=== PATIENT | female | born 1990 | race Caucasian/White ===

== ENCOUNTER 2016-10-18 09:59 | Emergency (ER) | payer SELFPAY ==
[~2016-10-18] VITALS: Ht 162.6 cm; Wt 60.0 kg
[~2016-10-18 09:59] MED LIST: BACT2OIN TOP; BACT800T5 PO; CEPH500C3 PO
[2016-10-18 10:00] VITALS: BP 154/75; PULSE 87; RESP 22; TEMP 97.5; O2SAT 98
--- NOTE | 2016-10-18 11:27 | PD ---
HPI Chief Complaint: Flank/Kidney Pain Stated Complaint: RIGHT FLANK PAIN Time Seen by Provider: 11:26 Travel History International Travel<30 days: No Contact w/Intl Traveler<30days: No Known affected area: No History of Present Illness HPI 26-year-old female with history of IV drug use, last used this week, presents to emergency department for evaluation of right sided flank pain and acute onset yesterday. Patient states the pain is sharp, stabbing, constant. Rates it a 10 out of 10. Denies any urinary symptoms. Patient has history of 2, 2. No history of kidney stones. Subjective fever and chills. She has not taken anything for this or her pain. Nausea without vomiting. No other symptoms to report. History Social History Alcohol Use: No Tobacco Use: No Allergies-Medications (Allergen,Severity, Reaction): Coded Allergies: No Known Allergies (Verified , 07/16/16) Reported Meds & Prescriptions Reported Meds & Active Scripts Active Ibuprofen 600 Mg Tab 600 Mg PO Q8HR PRN Flomax (Tamsulosin HCl) 0.4 Mg Cap 0.4 Mg PO BID 5 Days Cipro (Ciprofloxacin HCl) 500 Mg Tab 500 Mg PO BID 10 Days Percocet (Oxycodone-Acetaminophen) 10-325 mg Tab 1 Tab PO Q6H PRN Mupirocin 2% Oint (22 gm) (Mupirocin) 2 % Oin 1 Applic TOP BID 14 Days Keflex (Cephalexin Monohydrate) 500 Mg Cap 500 Mg PO BID Bactrim Ds1 Tab 1 Tab Tab 1 Tab PO BID 10 Days Review of Systems Except as stated in HPI: all other systems reviewed are Neg Physical Exam Narrative GENERAL: Well-nourished, well-developed female patient, lying in bed, in no acute distress SKIN: Warm and dry. HEAD: Normocephalic. Atraumatic EYES: No scleral icterus. No injection or drainage. NECK: Supple, trachea midline. No JVD or lymphadenopathy. CARDIOVASCULAR: Regular rate and rhythm without murmurs, gallops, or rubs. RESPIRATORY: Breath sounds equal bilaterally. No accessory muscle use. GASTROINTESTINAL: Abdomen soft, non-tender, nondistended. MUSCULOSKELETAL: No cyanosis, or edema. BACK: Nontender without obvious deformity. Right CVA tenderness. Data Data Last Documented VS Vital Signs Date Time Temp Pulse Resp B/P Pulse Ox O2 Delivery O2 Flow Rate FiO2 10/18/16 10:00 97.5 87 22 154/75 98 Orders Urinalysis - C+S If Indicated (10/18/16 10:02) Ed Urine Pregnancytest Poc (10/18/16 10:02) Complete Blood Count With Diff (10/18/16 10:02) Lipase (10/18/16 10:02) Basic Metabolic Panel (Bmp) (10/18/16 11:24) Ketorolac Inj (Toradol Inj) (10/18/16 11:30) Ct Abd/Pel W/O Iv Contrast (10/18/16 ) Urine Culture (10/18/16 11:30) Labs Laboratory Tests Test 10/18/16 11:30 White Blood Count 6.9 TH/MM3 Red Blood Count 4.91 MIL/MM3 Hemoglobin 14.1 GM/DL Hematocrit 42.0 % Mean Corpuscular Volume 85.6 FL Mean Corpuscular Hemoglobin 28.8 PG Mean Corpuscular Hemoglobin 33.6 % Concent Red Cell Distribution Width 12.8 % Platelet Count 233 TH/MM3 Mean Platelet Volume 8.0 FL Neutrophils (%) (Auto) 94.7 % Lymphocytes (%) (Auto) 4.2 % Monocytes (%) (Auto) 0.6 % Eosinophils (%) (Auto) 0.3 % Basophils (%) (Auto) 0.2 % Neutrophils # (Auto) 6.5 TH/MM3 Lymphocytes # (Auto) 0.3 TH/MM3 Monocytes # (Auto) 0.0 TH/MM3 Eosinophils # (Auto) 0.0 TH/MM3 Basophils # (Auto) 0.0 TH/MM3 CBC Comment DIFF FINAL Differential Comment Urine Color DARK-BROWN Urine Turbidity HAZY Urine pH 6.0 Urine Specific [place] 1.016 Urine Protein TRACE mg/dL Urine Glucose (UA) NEG mg/dL Urine Ketones NEG mg/dL Urine Occult Blood LARGE Urine Nitrite POS Urine Bilirubin NEG Urine Urobilinogen LESS THAN 2.0 MG/DL Urine Leukocyte Esterase LARGE Urine RBC 52 /hpf Urine WBC 100 /hpf Urine WBC Clumps FEW Urine Squamous Epithelial 15 /hpf Cells Urine Bacteria MOD /hpf Urine Mucus FEW /lpf Microscopic Urinalysis Comment CULTURE INDICATED Sodium Level 140 MEQ/L Potassium Level 3.8 MEQ/L Chloride Level 106 MEQ/L Carbon Dioxide Level 27.8 MEQ/L Anion Gap 6 MEQ/L Blood Urea Nitrogen 6 MG/DL Creatinine 0.98 MG/DL Estimat Glomerular Filtration 69 ML/MIN Rate Random Glucose 120 MG/DL Calcium Level 9.1 MG/DL Lipase 77 U/L [facility] Medical Decision Making Medical Screen Exam Complete: Yes Emergency Medical Condition: Yes Medical Record Reviewed: Yes Differential Diagnosis Renal calculi versus pyelonephritis versus cystitis versus PID versus abscess Narrative Course 26 year-old female presents as a department for evaluation of right flank pain. Patient appears overall well. She does appear in pain. She has right sided CVA tenderness. Workup was initiated in triage. She was given IM Toradol and this seems to alleviate much of her pain. Laboratory Tests Test 10/18/16 11:30 White Blood Count 6.9 TH/MM3 Red Blood Count 4.91 MIL/MM3 Hemoglobin 14.1 GM/DL Hematocrit 42.0 % Mean Corpuscular Volume 85.6 FL Mean Corpuscular Hemoglobin 28.8 PG Mean Corpuscular Hemoglobin 33.6 % Concent Red Cell Distribution Width 12.8 % Platelet Count 233 TH/MM3 Mean Platelet Volume 8.0 FL Neutrophils (%) (Auto) 94.7 % Lymphocytes (%) (Auto) 4.2 % Monocytes (%) (Auto) 0.6 % Eosinophils (%) (Auto) 0.3 % Basophils (%) (Auto) 0.2 % Neutrophils # (Auto) 6.5 TH/MM3 Lymphocytes # (Auto) 0.3 TH/MM3 Monocytes # (Auto) 0.0 TH/MM3 Eosinophils # (Auto) 0.0 TH/MM3 Basophils # (Auto) 0.0 TH/MM3 CBC Comment DIFF FINAL Differential Comment Urine Color DARK-BROWN Urine Turbidity HAZY Urine pH 6.0 Urine Specific [place] 1.016 Urine Protein TRACE mg/dL Urine Glucose (UA) NEG mg/dL Urine Ketones NEG mg/dL Urine Occult Blood LARGE Urine Nitrite POS Urine Bilirubin NEG Urine Urobilinogen LESS THAN 2.0 MG/DL Urine Leukocyte Esterase LARGE Urine RBC 52 /hpf Urine WBC 100 /hpf Urine WBC Clumps FEW Urine Squamous Epithelial 15 /hpf Cells Urine Bacteria MOD /hpf Urine Mucus FEW /lpf Microscopic Urinalysis Comment CULTURE INDICATED Sodium Level 140 MEQ/L Potassium Level 3.8 MEQ/L Chloride Level 106 MEQ/L Carbon Dioxide Level 27.8 MEQ/L Anion Gap 6 MEQ/L Blood Urea Nitrogen 6 MG/DL Creatinine 0.98 MG/DL Estimat Glomerular Filtration 69 ML/MIN Rate Random Glucose 120 MG/DL Calcium Level 9.1 MG/DL Lipase 77 U/L Last Impressions Abdomen/Pelvis CT 10/18/16 0000 Signed Impressions: Service Date/Time: October 12:00 - CONCLUSION: 1. Severe obstructive uropathy on the right secondary to a distal ureter/ UVJ calculus measuring 4 mm. 2. Otherwise unremarkable study. Jose Kirkland MD I discussed the lab results and the CT results with my attending physician Dr. Osullivan. He recommends patient be put on by mouth antibiotics due to her urine results however patient does not appear septic based on lab work and vital signs. Patient at this time is realizing much improvement in her pain. Dr. Osullivan also recommends Flomax with additional pain control. I discussed this with the patient as well as the findings of the exam and concern of worsening infection. She agrees to return immediately with any acute worsening symptoms. Diagnosis Primary Impression: Obstructive uropathy Additional Impression: Renal calculus, right Referrals: Primary Care Physician Urologist Patient Instructions: General Instructions, Kidney Stones (ED) Additional Instructions: Maintain adequate oral hydration Follow up with urologist Return with fever, any worsening persistent pain, or acute change in symptoms Med/Other Pt SpecificInfo: Prescription(s) given Scripts Ibuprofen 600 Mg Sem950 Mg PO Q8HR PRN (PAIN) #30 TAB Ref 0 Prov:Victoria Young 10/18/16 Tamsulosin (Flomax)0.4 Mg Cap0.4 Mg PO BID 5 Days Ref 0 Prov:Victoria Young 10/18/16 Ciprofloxacin (Cipro)500 Mg Gyn442 Mg PO BID 10 Days Ref 0 Prov:Victoria Young 10/18/16 Oxycodone-Acetaminophen (Percocet)10-325 mg Tab1 Tab PO Q6H PRN (PAIN) #15 TAB Ref 0 Prov:Kamlesh Osullivan MD 10/18/16 Disposition: 01 DISCHARGE HOME Condition: Stable Victoria Young Oct 18, 2016 11:27
[2016-10-18] MEDS ORDERED: KETOROLAC TROMETHAMINE 60 MG/2 ML (IM) VIAL IM ONE (11:30)
[2016-10-18 12:03] LABS: AUTOMATED NEUTROPHIL # 6.5 TH/MM3 (1.8-7.7); BASOPHIL % 0.2 % (0.0-2.0); EOSINOPHIL % 0.3 % (0.0-4.0); HEMO FLAGS DIFF FINAL; LYMPH % 4.2 % (9.0-44.0); LYMPHOCYTE # 0.3 TH/MM3 (1.0-4.8); MEAN CELL VOLUME 85.6 FL (80.0-100.0); MEAN CORPUSCULAR HEMOGLOBIN 28.8 PG (27.0-34.0); MEAN CORPUSCULAR HGB CONC 33.6 % (32.0-36.0); MONO % 0.6 % (0.0-8.0); NEUT % 94.7 % (16.0-70.0); PLATELET COUNT 233 TH/MM3 (150-450); RED BLOOD COUNT 4.91 MIL/MM3 (4.00-5.30); RED CELL DISTRIBUTION WIDTH 12.8 % (11.6-17.2); WHITE BLOOD COUNT 6.9 TH/MM3 (4.0-11.0)
[2016-10-18 12:15] LABS: BACTERIA, URINE MOD /hpf; BLOOD, URINE LARGE (NEG); COMMENT (UR) CULTURE INDICATED; CULTURE IF INDICATED CULTURE INDICATED; GLUCOSE,URINE NEG (NEG); KETONE, URINE NEG (NEG); MUCUS URINE FEW /lpf (OCC); SQUAMOUS EPITHELIAL CELL URINE 15 /hpf (0-5)
[2016-10-18 12:17] LABS: NITRITE,URINE POS (NEG); URINE COLOR DARK-BROWN (YELLW/STRAW)
[2016-10-18 12:18] LABS: BICARBONATE 27.8 MEQ/L (21.0-32.0); POTASSIUM 3.8 MEQ/L (3.5-5.1)
--- NOTE | 2016-10-18 12:19 | RADRPT ---
EXAM DATE/TIME: 10/18/2016 12:00 [place] COMPARISON: No previous studies available for comparison. INDICATIONS : Right flank pain. ORAL CONTRAST: No oral contrast ingested. RADIATION DOSE: 9.96 CTDIvol (mGy) MEDICAL HISTORY : None SURGICAL HISTORY : section. ENCOUNTER: Initial ACUITY: 1 day PAIN SCALE: 10/10 LOCATION: Right flank TECHNIQUE: Volumetric scanning of the abdomen and pelvis was performed. Using automated exposure control and ad justment of the mA and/or kV according to patient size, radiation dose was kept as low as reasonably achievable to obtain optimal diagnostic quality images. FINDINGS: LOWER LUNGS: The visualized lower lungs are clear. LIVER: Homogeneous density without lesion. There is no dilation of the biliary tree. No calcified gallston es. SPLEEN: Normal size without lesion. PANCREAS: Within normal limits. KIDNEYS: Severe hydronephrosis and hydroureter leading to distal ureter where there is an obstructing 4 mm meghana culus seen in the region of the right UVJ. There is no mass, stone, or hydronephrosis on the left.. ADRENAL GLANDS: Within normal limits. VASCULAR: There is no aortic aneurysm. BOWEL/MESENTERY: The stomach, small bowel, and colon demonstrate no acute abnormality. There is no free intraperitone al air or fluid. ABDOMINAL WALL: Within normal limits. RETROPERITONEUM: There is no lymphadenopathy. BLADDER: No wall thickening or mass. REPRODUCTIVE: Within normal limits. INGUINAL: There is no lymphadenopathy or hernia. MUSCULOSKELETAL: Within normal limits for patient age. CONCLUSION: 1. Severe obstructive uropathy on the right secondary to a distal ureter/ UVJ calculus measuring 4 mm . 2. Otherwise unremarkable study. Jose Kirkland MD on October 18, 2016 at 12:16 Board Certified Radiologist. This report was verified electronically.
[2016-10-18] MEDS ORDERED: PERC10TA27 PO (12:26)
[2016-10-18] MEDS ORDERED: IBUP-232 PO (12:28)
[2016-10-18] MEDS ORDERED: TAMS5CAP PO (12:28)
[2016-10-18] MEDS ORDERED: CIPR-9 PO (12:28)
== END 2016-10-18 14:10 | disposition home or self-care (01) ==
LOC: NETRI 09:59
DX: N13.9 Obstructive and reflux uropathy, unspecified (principal); N20.0 Calculus of kidney; B96.20 Unspecified Escherichia coli [E. coli] as the cause of diseases classified elsewhere
CPT/HCPCS: 74176; 80048; 81001; 83690; 84703; 85025; 87077; 87086; 87186; 96372; 99284; J1885

== ENCOUNTER 2017-05-19 11:43 | Emergency (ER) | payer SELFPAY ==
[~2017-05-19 11:43] MED LIST changes: +CIPR-9 PO; +IBUP-232 PO; +PERC10TA27 PO; +TAMS5CAP PO
[2017-05-19] MEDS ORDERED: SODIUM CHLOR 0.9% 1000 ML INJ 1,000 ML IV ONE (11:51)
[2017-05-19 12:05] VITALS: BP 117/68; PULSE 96; RESP 18; O2SAT 100
--- NOTE | 2017-05-19 12:11 | PD ---
HPI Chief Complaint: OD/ Ingestion Time Seen by Provider: 12:08 Travel History International Travel<30 days: No Contact w/Intl Traveler<30days: No Traveled to known affect area: No History of Present Illness HPI 26-year-old female that presents to the ED for evaluation of overdose. Patient apparently was found by bystanders with her boyfriend also unconscious. Patient had trouble breathing but she did have a pulse. They gave her Narcan and patient came back to it. Patient now voicing no concerns other than being somewhat weak. She does tell me that she did use heroine and she has never done anything like this before. She denies trying to kill herself. She denies any other medical issues. She does have a chronic history of IV drug abuse and she has multiple sites of her body which she injected. She denies any chest pain or shortness of breath. No other medical issues. Per patient she did not do this to kill herself but she did this for recreational purposes. PFSH Past Medical History ADHD: No Autoimmune Disease: No Cancer: No Cardiovascular Problems: No Diabetes: No Genitourinary: No Neurologic: No Psychiatric: No Respiratory: No Immunizations Current: Yes Migraines: No Seizures: No Thyroid Disease: No Ulcer: No : 0 Past Surgical History Appendectomy: No Cholecystectomy: No Hysterectomy: Yes Other Surgery: Yes (in 1999 had surgery on bilateral wrists ) Social History Alcohol Use: No Tobacco Use: No Substance Use: No Allergies-Medications (Allergen,Severity, Reaction): Coded Allergies: No Known Allergies (Verified , 05/19/17) Reported Meds & Prescriptions Reported Meds & Active Scripts Active Bactrim DS (Sulfamethoxazole-Trimethoprim) 800-160 Mg Tab 1 Tab PO BID 7 Days Ibuprofen 600 Mg Tab 600 Mg PO Q8HR PRN Flomax (Tamsulosin HCl) 0.4 Mg Cap 0.4 Mg PO BID 5 Days Cipro (Ciprofloxacin HCl) 500 Mg Tab 500 Mg PO BID 10 Days Percocet (Oxycodone-Acetaminophen) 10-325 mg Tab 1 Tab PO Q6H PRN Review of Systems Except as stated in HPI: all other systems reviewed are Neg Physical Exam Narrative GENERAL: SKIN: Warm and dry. Patient has multiple scar tissues on the arms and legs from work she's been injecting. Sign of infection or abscess or mass noted. HEAD: Atraumatic. Normocephalic. EYES: Pupils equal and round. No scleral icterus. No injection or drainage. ENT: No nasal bleeding or discharge. Mucous membranes pink and moist. Tongue is midline. No uvula deviation. NECK: Trachea midline. No JVD. CARDIOVASCULAR: Regular rate and rhythm. No murmurs, S3, S4. RESPIRATORY: No accessory muscle use. Clear to auscultation. Breath sounds equal bilaterally. GASTROINTESTINAL: Abdomen soft, non-tender, nondistended. Hepatic and splenic margins not palpable. MUSCULOSKELETAL: Extremities without clubbing, cyanosis, or edema. No obvious deformities. Full range of motion of the upper and lower extremities bilaterally. 2+ pulses bilaterally. NEUROLOGICAL: Awake and alert. No obvious cranial nerve deficits. Motor grossly within normal limits. Five out of 5 muscle strength in the arms and legs. Normal speech. PSYCHIATRIC: Appropriate mood and affect; insight and judgment normal. Data Data Last Documented VS Vital Signs Date Time Temp Pulse Resp B/P Pulse Ox O2 Delivery O2 Flow Rate FiO2 05/19/17 13:18 98.4 100 Room Air 05/19/17 12:05 96 18 117/68 Orders Basic Metabolic Panel (Bmp) (05/19/17 11:51) Complete Blood Count With Diff (05/19/17 11:51) Urinalysis - C+S If Indicated (05/19/17 11:51) Iv Access Insert/Monitor (05/19/17 11:51) Ecg Monitoring (05/19/17 11:51) Oximetry (05/19/17 11:51) Sodium Chlor 0.9% 1000 Ml Inj (Ns 1000 M (05/19/17 11:51) Drug Screen, Random Urine (05/19/17 11:51) Alcohol (Ethanol) (05/19/17 11:51) Salicylates (Aspirin) (05/19/17 11:51) Tylenol (Acetaminophen) (05/19/17 11:51) Urine Culture (05/19/17 12:13) Sulfamet-Trimeth Ds 800-160 Mg (Bactrim (05/19/17 14:30) Labs Laboratory Tests Test 05/19/17 12:13 White Blood Count 10.1 TH/MM3 Red Blood Count 4.63 MIL/MM3 Hemoglobin 13.3 GM/DL Hematocrit 39.0 % Mean Corpuscular Volume 84.2 FL Mean Corpuscular Hemoglobin 28.8 PG Mean Corpuscular Hemoglobin 34.2 % Concent Red Cell Distribution Width 13.6 % Platelet Count 267 TH/MM3 Mean Platelet Volume 8.3 FL Neutrophils (%) (Auto) 85.8 % Lymphocytes (%) (Auto) 8.3 % Monocytes (%) (Auto) 5.3 % Eosinophils (%) (Auto) 0.3 % Basophils (%) (Auto) 0.3 % Neutrophils # (Auto) 8.7 TH/MM3 Lymphocytes # (Auto) 0.8 TH/MM3 Monocytes # (Auto) 0.5 TH/MM3 Eosinophils # (Auto) 0.0 TH/MM3 Basophils # (Auto) 0.0 TH/MM3 CBC Comment DIFF FINAL Differential Comment Urine Color YELLOW Urine Turbidity HAZY Urine pH 6.5 Urine Specific [place] 1.025 Urine Protein 30 mg/dL Urine Glucose (UA) NEG mg/dL Urine Ketones NEG mg/dL Urine Occult Blood NEG Urine Nitrite NEG Urine Bilirubin NEG Urine Urobilinogen 2.0 MG/DL Urine Leukocyte Esterase LARGE Urine RBC 14 /hpf Urine WBC 82 /hpf Urine Squamous Epithelial 16 /hpf Cells Urine Calcium Oxalate Crystals OCC /hpf Urine Bacteria RARE /hpf Urine Mucus FEW /lpf Microscopic Urinalysis Comment CULTURE INDICATED Sodium Level 138 MEQ/L Potassium Level 3.8 MEQ/L Chloride Level 104 MEQ/L Carbon Dioxide Level 26.7 MEQ/L Anion Gap 7 MEQ/L Blood Urea Nitrogen 7 MG/DL Creatinine 0.68 MG/DL Estimat Glomerular Filtration 105 ML/MIN Rate Random Glucose 111 MG/DL Calcium Level 8.4 MG/DL Salicylates Level LESS THAN 1.7 MG/DL Urine Opiates Screen POS Acetaminophen Level LESS THAN 2.0 MCG/ML Urine Barbiturates Screen NEG Urine Amphetamines Screen POS Urine Benzodiazepines Screen NEG Urine Cocaine Screen NEG Urine Cannabinoids Screen NEG Ethyl Alcohol Level LESS THAN 3 MG/DL MDM Medical Decision Making Medical Screen Exam Complete: Yes Emergency Medical Condition: Yes Medical Record Reviewed: Yes Interpretation(s) CBC & BMP Diagram 05/19/17 12:13 tox positive for heroin and amphetamines LFTS WNL Differential Diagnosis Substance abuse versus IV drug abuse versus heroine abuse versus opiate abuse versus overdose versus accidental overdose Narrative Course 26-year-old female that presents to the ED for evaluation of overdose. Patient was properly examined and was found to have signs and symptoms consistent with opiate overdose. Patient injected herself heroine and she overdose because of this. She does state also states his story. She does have a known history of IV drug abuse in her records. Patient given Narcan and now she is in no acute distress. At this time case was discussed in my attending Dr. Osullivan who recommends labs and observation for the next 3-4 hours. Patient has no acute distress she can be released back to home. Labs were drawn. Labs showed positive for opiates and amphetamines. Patient has had no issues here in the ER. At this time patient will be medically clear. Patient will be discharged once medically sober. Patient was instructed to follow-up with outpatient rehabilitation facility to stop using drugs. See ED worsening symptoms. Follow with PCP. Patient was found to have a UTI so she was given a production for Bactrim for this. Diagnosis Primary Impression: Accidental drug overdose Qualified Code: T50.901A - Accidental drug overdose, initial encounter Additional Impression: UTI (urinary tract infection) Qualified Code: N30.00 - Acute cystitis without hematuria Referrals: [facility] Patient Instructions: General Instructions Additional Instructions: Take medication as prescribed. Follow-up with PCP. See ED worsening symptoms. Follow with [facility] for detox and treatment for your drug abuse. Med/Other Pt SpecificInfo: Prescription(s) given Scripts Sulfamethoxazole-Trimethoprim (Bactrim DS)800-160 Mg Tab1 Tab PO BID 7 Days Prov:Kamlesh Osullivan MD 05/19/17 Disposition: 01 DISCHARGE HOME Condition: Stable Juan Carlos Alvarado May 19, 2017 12:11
[2017-05-19 13:18] VITALS: TEMP 98.4; O2SAT 100
[2017-05-19 13:49] LABS: AUTOMATED NEUTROPHIL # 8.7 TH/MM3 (1.8-7.7); BASOPHIL % 0.3 % (0.0-2.0); EOSINOPHIL % 0.3 % (0.0-4.0); HEMO FLAGS DIFF FINAL; LYMPH % 8.3 % (9.0-44.0); LYMPHOCYTE # 0.8 TH/MM3 (1.0-4.8); MEAN CELL VOLUME 84.2 FL (80.0-100.0); MEAN CORPUSCULAR HEMOGLOBIN 28.8 PG (27.0-34.0); MEAN CORPUSCULAR HGB CONC 34.2 % (32.0-36.0); MONO % 5.3 % (0.0-8.0); NEUT % 85.8 % (16.0-70.0); PLATELET COUNT 267 TH/MM3 (150-450); RED BLOOD COUNT 4.63 MIL/MM3 (4.00-5.30); RED CELL DISTRIBUTION WIDTH 13.6 % (11.6-17.2); WHITE BLOOD COUNT 10.1 TH/MM3 (4.0-11.0)
[2017-05-19 13:56] LABS: ANION GAP 7 MEQ/L (5-15); BICARBONATE 26.7 MEQ/L (21.0-32.0); BLOOD UREA NITROGEN 7 MG/DL (7-18); CHLORIDE 104 MEQ/L (98-107); GLOMERULAR FILTRATION RATE 105 ML/MIN (>89); POTASSIUM 3.8 MEQ/L (3.5-5.1); SODIUM (NA) 138 MEQ/L (136-145)
[2017-05-19 13:57] LABS: ACETAMINOPHEN LESS THAN 2.0 MCG/ML (10.0-30.0); ALCOHOL LESS THAN 3 MG/DL (0-5)
[2017-05-19 14:04] LABS: BACTERIA, URINE RARE /hpf; BLOOD, URINE NEG (NEG); CALCIUM OXALATE CRYSTALS,URINE OCC /hpf; COMMENT (UR) CULTURE INDICATED; CULTURE IF INDICATED CULTURE INDICATED; GLUCOSE,URINE NEG (NEG); KETONE, URINE NEG (NEG); MUCUS URINE FEW /lpf (OCC); NITRITE,URINE NEG (NEG); PH, URINE 6.5 (5.0-8.5); SQUAMOUS EPITHELIAL CELL URINE 16 /hpf (0-5); URINE COLOR YELLOW (YELLW/STRAW)
[2017-05-19] MEDS ORDERED: BACT800T5 PO (14:22)
[2017-05-19] MEDS ORDERED: SULFAMETHOXAZOLE-TRIMETHOPRIM DS 800-160 MG TAB PO ONE (14:30)
[2017-05-19 14:59] VITALS: BP 134/85; PULSE 100; RESP 18; O2SAT 100
[2017-05-19 16:54] VITALS: BP 132/69
== END 2017-05-19 16:57 | disposition home or self-care (01) ==
LOC: NEPC 11:43
DX: T50.901A Poisoning by unspecified drugs, medicaments and biological substances, accidental (unintentional), initial encounter (principal); N30.00 Acute cystitis without hematuria
CPT/HCPCS: 80048; 80307; 81001; 85025; 87086; 96360; 99284; J7030

== ENCOUNTER 2017-10-10 10:04 | Emergency (ER) | payer SELFPAY ==
[~2017-10-10] VITALS: Ht 165.1 cm; Wt 70.0 kg
[~2017-10-10 10:04] MED LIST changes: -BACT2OIN TOP; -CEPH500C3 PO
[2017-10-10 10:05] VITALS: BP 129/84; PULSE 91; RESP 12; TEMP 98.7; O2SAT 99
[2017-10-10] MEDS ORDERED: CEPH-460 PO (11:19)
[2017-10-10] MEDS ORDERED: BACT800T5 PO (11:19)
--- NOTE | 2017-10-10 11:20 | PD ---
HPI Chief Complaint: Skin Problem Time Seen by Provider: 10:59 Travel History International Travel<30 days: No Contact w/Intl Traveler<30days: No Traveled to known affect area: No History of Present Illness HPI 27-year-old female presents emergency department for evaluation of wound to the left lateral temporal aspect of face. Patient has multiple cystic eruptions on forehead consistent with acne vulgaris. There are no signs or symptoms of infection noted with these other lesions on the forehead. Patient states she picked one of the cysts on the left temporal aspect of the face and accidentally scratched her face approximately one week ago. The scratch formed a scab. 3 days ago she picked up the scab and subsequently has pain, purulent drainage and erythema around the site. Patient denies any fever, chills, malaise. Patient has history of IV drug use however she states she hasn't used in approximately 6 months. PFSH Past Medical History ADHD: No Autoimmune Disease: No Blood Disorders: No Cancer: No Cardiovascular Problems: No Diabetes: No Gastrointestinal Disorders: No Genitourinary: No Neurologic: No Psychiatric: No Respiratory: No Immunizations Current: Yes Migraines: No Seizures: No Thyroid Disease: No Ulcer: No : 0 Past Surgical History Appendectomy: No Cholecystectomy: No Hysterectomy: Yes Other Surgery: Yes (in 1999 had surgery on bilateral wrists ) Social History Alcohol Use: No Tobacco Use: No Substance Use: Yes (heroin) Allergies-Medications (Allergen,Severity, Reaction): Coded Allergies: No Known Allergies (Verified Adverse Reaction, Unknown, 10/10/17) Reported Meds & Prescriptions Reported Meds & Active Scripts Active Review of Systems Except as stated in HPI: all other systems reviewed are Neg Physical Exam Narrative GENERAL: Well-nourished, well-developed 27-year-old female patient in no acute distress. Nontoxic appearing. SKIN: 2 cm to 1 cm wound to the left temporal aspect of face. Small amount of purulent drainage with surrounding erythema noted. HEAD: Normocephalic. Atraumatic. EYES: No scleral icterus. No injection or drainage. NECK: Supple, trachea midline. No JVD or lymphadenopathy. CARDIOVASCULAR: Regular rate and rhythm without murmurs, gallops, or rubs. RESPIRATORY: Breath sounds equal bilaterally. No accessory muscle use. GASTROINTESTINAL: Abdomen soft, non-tender, nondistended. Data Data Last Documented VS Vital Signs Date Time Temp Pulse Resp B/P (MAP) Pulse Ox O2 Delivery O2 Flow Rate FiO2 10/10/17 10:05 98.7 91 12 129/84 (99) 99 MDM Medical Decision Making Medical Screen Exam Complete: Yes Emergency Medical Condition: Yes Differential Diagnosis Differential diagnosis includes but not limited to acne vulgaris, abscess, cellulitis Narrative Course Physical exam is consistent with infection of the wound. Patient will be treated with Bactrim and Keflex and instructions to keep the area clean and dry. The patient will be given instructions to return the emergency Department with any worsening condition but otherwise follow up with primary care. Patient given information on the [facility] for routine care. Diagnosis Primary Impression: Wound cellulitis Referrals: [facility] Patient Instructions: Acute Wounds (ED), General Instructions, Wound Infection (ED) Additional Instructions: Please return to emergency department if your symptoms return or worsen. Follow up with your primary care provider. [facility] info given. Take medications as prescribed. Keep wound clean and dry. Med/Other Pt SpecificInfo: Prescription(s) given Scripts Cephalexin (Keflex) 500 Mg Capsule 500 MG PO Q6H for Infection for 10 Days, #40 CAP 0 Refills Prov: Janna Fitch 10/10/17 Sulfamethoxazole-Trimethoprim (Bactrim DS) 800-160 Mg Tab 1 TAB PO BID for Infection for 10 Days, #20 TAB 0 Refills Prov: Janna Fitch 10/10/17 Disposition: 01 DISCHARGE HOME Condition: Stable Janna Fitch Oct 10, 2017 11:20
[2017-10-11] MEDS ORDERED: TRAM50TA PO (13:04)
== END 2017-10-10 11:45 | disposition home or self-care (01) ==
LOC: NEPK 10:04
DX: L03.90 Cellulitis, unspecified (principal)
CPT/HCPCS: 99284

== ENCOUNTER 2017-10-11 10:12 | Emergency (ER) | payer SELFPAY ==
[~2017-10-11] VITALS: Ht 165.1 cm; Wt 68.0 kg
[2017-10-11 10:12] VITALS: BP 134/81; PULSE 115; RESP 20; TEMP 98.5; O2SAT 99
[~2017-10-11 10:12] MED LIST changes: +CEPH-460 PO; -CIPR-9 PO; -IBUP-232 PO; -PERC10TA27 PO; -TAMS5CAP PO
--- NOTE | 2017-10-11 10:42 | PD ---
HPI Chief Complaint: Skin Problem Time Seen by Provider: 10:32 Travel History International Travel<30 days: No Contact w/Intl Traveler<30days: No Traveled to known affect area: No History of Present Illness HPI 27 year old female presents to emergency department with left facial swelling to her forehead and around her eye when she woke up with this morning. She was seen here yesterday and was given prescriptions for Keflex and Bactrim for an abscess to her left forehead area, which she dropped off at the pharmacy and has not picked up or started. Denies fever, vomiting. Says her vision is a little blurry. Pain radiates to left ear. Rates pain 8/10. Describes it as a throbbing sensation. Took aspirin yesterday for symptom management. Pain is constant and unrelieved. No known relieving factors. Up-to-date on tetanus vaccination. No known allergies. No primary care provider. Has no other medical complaints. No other modifying factors or associated signs and symptoms. PFSH Past Medical History ADHD: No Autoimmune Disease: No Blood Disorders: No Cancer: No Cardiovascular Problems: No Diabetes: No Gastrointestinal Disorders: No Genitourinary: No Neurologic: No Psychiatric: No Respiratory: No Immunizations Current: Yes Migraines: No Seizures: No Thyroid Disease: No Ulcer: No ?: Not : 0 Past Surgical History Appendectomy: No Cholecystectomy: No Hysterectomy: Yes Other Surgery: Yes (in 1999 had surgery on bilateral wrists ) Social History Alcohol Use: No Tobacco Use: No Substance Use: Yes (heroin) Allergies-Medications (Allergen,Severity, Reaction): Coded Allergies: No Known Allergies (Unverified , 10/11/17) Reported Meds & Prescriptions Reported Meds & Active Scripts Active Tramadol (Tramadol HCl) 50 Mg Tab 50 Mg PO Q4H PRN Keflex (Cephalexin) 500 Mg Capsule 500 Mg PO Q6H 10 Days Bactrim DS (Sulfamethoxazole-Trimethoprim) 800-160 Mg Tab 1 Tab PO BID 10 Days Review of Systems Except as stated in HPI: all other systems reviewed are Neg Physical Exam Narrative GENERAL: Well-nourished, well-developed female patient, in no acute distress; afebrile, nontoxic-appearing SKIN: There is an indurated area to the left forehead/temporal area which measures about 2 cm in diameter; the area is scabbed with minimal amount of purulent drainage noted. There is a zone of inflammation around it but no lymphangitis. HEAD: Atraumatic. Normocephalic. EYES: Pupils equal and round. No scleral icterus. No injection or drainage. PERRLA. EOMI. Left eye is edematous and without erythema. Left Orbital tenderness on palpation. ENT: Mucosa pink and moist. Airway patent. NECK: Trachea midline. CARDIOVASCULAR: Rate and rhythm; low 100s. No Murmur appreciated. RESPIRATORY: No accessory muscle use. Sounds clear and equal bilaterally. No retractions or tachypnea. GASTROINTESTINAL: Abdomen soft, non-tender, nondistended. Positive bowel sounds. No hepato-splenomegaly, or palpable masses. No guarding. MUSCULOSKELETAL: No obvious deformities. No clubbing. No cyanosis. No edema. NEUROLOGICAL: Awake and alert. Oriented 3. No obvious cranial nerve deficits. Motor grossly within normal limits. Normal speech. PSYCHIATRIC: Appropriate mood and affect; insight and judgment normal. Data Data Last Documented VS Vital Signs Date Time Temp Pulse Resp B/P (MAP) Pulse Ox O2 Delivery O2 Flow Rate FiO2 10/11/17 11:00 96 Room Air 10/11/17 10:12 98.5 115 20 Orders Orders Wound Culture And Gram Stain (10/11/17 10:43) Ct Facial Bones W Iv Contrast (10/11/17 ) Basic Metabolic Panel (Bmp) (10/11/17 10:43) Complete Blood Count With Diff (10/11/17 10:43) Iv Access Insert/Monitor (10/11/17 10:43) Ecg Monitoring (10/11/17 10:43) Oximetry (10/11/17 10:43) Sodium Chlor 0.9% 1000 Ml Inj (Ns 1000 M (10/11/17 10:43) Sodium Chloride 0.9% Flush (Ns Flush) (10/11/17 10:45) Ketorolac Inj (Toradol Inj) (10/11/17 10:45) Ed Urine Pregnancytest Poc (10/11/17 10:43) Oxycodone-Acetamin 5-325 Mg (Percocet (10/11/17 11:30) Lidocaine 1% Inj (Xylocaine 1% Inj) (10/11/17 11:30) Iohexol 350 Inj (Omnipaque 350 Inj) (10/11/17 12:27) Clindamycin Inj (Cleocin Inj) (10/11/17 13:15) Ed Discharge Order (10/11/17 13:05) Labs Laboratory Tests Test 10/11/17 10:56 White Blood Count 10.0 TH/MM3 Red Blood Count 4.77 MIL/MM3 Hemoglobin 14.0 GM/DL Hematocrit 40.8 % Mean Corpuscular Volume 85.6 FL Mean Corpuscular Hemoglobin 29.3 PG Mean Corpuscular Hemoglobin Concent 34.3 % Red Cell Distribution Width 13.5 % Platelet Count 252 TH/MM3 Mean Platelet Volume 7.9 FL Neutrophils (%) (Auto) 79.0 % Lymphocytes (%) (Auto) 11.9 % Monocytes (%) (Auto) 8.3 % Eosinophils (%) (Auto) 0.5 % Basophils (%) (Auto) 0.3 % Neutrophils # (Auto) 7.9 TH/MM3 Lymphocytes # (Auto) 1.2 TH/MM3 Monocytes # (Auto) 0.8 TH/MM3 Eosinophils # (Auto) 0.1 TH/MM3 Basophils # (Auto) 0.0 TH/MM3 CBC Comment DIFF FINAL Differential Comment Blood Urea Nitrogen 7 MG/DL Creatinine 0.70 MG/DL Random Glucose 77 MG/DL Calcium Level 9.1 MG/DL Sodium Level 139 MEQ/L Potassium Level 3.4 MEQ/L Chloride Level 106 MEQ/L Carbon Dioxide Level 28.6 MEQ/L Anion Gap 4 MEQ/L Estimat Glomerular Filtration Rate 101 ML/MIN MDM Medical Decision Making Medical Screen Exam Complete: Yes Emergency Medical Condition: Yes Medical Record Reviewed: Yes Differential Diagnosis Orbital cellulitis, preseptal cellulitis, abscess Narrative Course 27-year-old female that was seen yesterday with an abscess to her left forehead/ temporal area. She did not start a prescription for Bactrim and Keflex that were prescribed to her yesterday. Woke up this morning with left facial swelling. Patient has left orbital tenderness on palpation. I discussed the patient with Dr. Mc and he agrees with my plan of care. CT facial bones , normal saline bolus, Toradol, UPT ordered. Wound culture pending. 1225: CBC, BMP unremarkable. 1301: CT of facial bones concludes: Maxillofacial CT 10/11/17 0000 Signed Impressions: Service Date/Time: Wednesday, October 11, 2017 12:01 - CONCLUSION: Left periorbital and supraorbital soft tissue swelling without focal collections of gas. No extension retroseptal. Crescencio Young MD CT findings discussed with the patient. Clindamycin IV administered prior to discharge. See my procedure note for abscess I&D. Patient says she is picking up her prescriptions of Keflex and Bactrim at [facility] on her way home. Instructed patient to return to the emergency department in 48 hours for wound recheck, or earlier if worsening of symptoms despite antibiotics. Instructed patient to follow up with primary care provider. Patient verbalizes understanding and agreement with treatment plan. Patient is medically cleared and stable for discharge. Discussed reasons to return to the emergency department. Patient agrees with treatment plan. The patients vital signs are stable and the patient is stable for outpatient follow-up and treatment. Patient discharged home, stable and in no acute distress. Procedures Procedure Narrative INCISION AND DRAINAGE OF ABSCESS: The area was prepped and was sterilely draped. A subcutaneous wheal of 1 % Xylocaine with a total number 1 mL was used to anesthetize the area properly. A number 11 scalpel was used to make a less than 0.5 -cm incision across the area of the abscess. The abscess was drained, complex loculations were broken down, and irrigated with normal saline. Cultures were obtained. Sterile dressing applied. Diagnosis Primary Impression: Abscess of forehead Additional Impression: Facial edema Referrals: [facility] Primary Care Physician Patient Instructions: Abscess (ED), Abscess Follow-up (ED), Abscess Incision and Drainage (DC), General Instructions Additional Instructions: Complete full course of antibiotics Warm compresses to the affected area Keep area clean and dry Ibuprofen or Tylenol as directed and as needed for pain and inflammation Follow-up with primary care provider Return to the emergency department in 48 hours for wound recheck, or earlier if symptoms worsen despite antibiotic therapy Return to emergency department immediately with worsening of symptoms Med/Other Pt SpecificInfo: Prescription(s) given, No Change to Meds Scripts Tramadol (Tramadol) 50 Mg Tab 50 MG PO Q4H Y for PAIN, #10 TAB 0 Refills Prov: Norma Rivera 10/11/17 Disposition: 01 DISCHARGE HOME Condition: Stable Norma Rivera Oct 11, 2017 10:42
[2017-10-11] MEDS ORDERED: SODIUM CHLOR 0.9% 1000 ML INJ 1,000 ML IV SCH (10:43)
[2017-10-11] MEDS ORDERED: KETOROLAC TROMETHAMINE 30 MG/ML (IVP) VIAL IVP ONE (10:45)
[2017-10-11] MEDS ORDERED: SODIUM CHLORIDE 0.9% FLUSH 10 ML FLUSH IV FLUSH PRN (10:45)
[2017-10-11 11:00] VITALS: O2SAT 96
[2017-10-11 11:12] LABS: AUTOMATED NEUTROPHIL # 7.9 TH/MM3 (1.8-7.7); BASOPHIL % 0.3 % (0.0-2.0); EOSINOPHIL # 0.1 TH/MM3 (0-0.4); EOSINOPHIL % 0.5 % (0.0-4.0); HEMATOCRIT 40.8 % (35.0-46.0); LYMPH % 11.9 % (9.0-44.0); LYMPHOCYTE # 1.2 TH/MM3 (1.0-4.8); MEAN CELL VOLUME 85.6 FL (80.0-100.0); MEAN CORPUSCULAR HEMOGLOBIN 29.3 PG (27.0-34.0); MEAN CORPUSCULAR HGB CONC 34.3 % (32.0-36.0); MEAN PLATELET VOLUME 7.9 FL (7.0-11.0); MONO % 8.3 % (0.0-8.0); MONOCYTE # 0.8 TH/MM3 (0-0.9); PLATELET COUNT 252 TH/MM3 (150-450); RED BLOOD COUNT 4.77 MIL/MM3 (4.00-5.30); RED CELL DISTRIBUTION WIDTH 13.5 % (11.6-17.2)
[2017-10-11] MEDS ORDERED: LIDOCAINE HCL 1% 30 ML VIAL INFIL ONE (11:30)
[2017-10-11] MEDS ORDERED: oxyCODONE/ACETAMINOPHEN 5 MG/325 MG TAB PO ONE (11:30)
[2017-10-11 11:33] LABS: BICARBONATE 28.6 MEQ/L (21.0-32.0); CALCIUM 9.1 MG/DL (8.5-10.1); CREATININE 0.7 MG/DL (0.50-1.00)
[2017-10-11] MEDS ORDERED: IOHEXOL 350 MG/ML 10 ML VIAL (for RAD DIAG) IVCONTRAST ONE (12:27)
--- NOTE | 2017-10-11 12:47 | RADRPT ---
EXAM DATE/TIME: 10/11/2017 12:01 [facility] COMPARISON: No previous studies available for comparison. INDICATIONS : Left temporal cellulitis, left eye swelling and ear pain. IV CONTRAST: 75 cc Omnipaque 350 (iohexol) IV RADIATION DOSE: 36.68 CTDIvol (mGy) MEDICAL HISTORY : Heroin SURGICAL HISTORY : Hysterectomy. ENCOUNTER: Initial ACUITY: 2 days PAIN SCALE: 5/10 LOCATION: Left facial TECHNIQUE: Volumetric scanning of the facial bones was performed. Using automated exposure control and adjustme nt of the mA and/or kV according to patient size, radiation dose was kept as low as reasonably achiev able to obtain optimal diagnostic quality images. DICOM format image data is available electronicall y for review and comparison. FINDINGS: There is soft tissue swelling about the left frontal region extending down to the supraorbital region . There is a mild enhancement in the thickened area. Soft tissue swelling remains pre-septal about th e left orbit. The retroseptal structures are normal in appearance and there is no induration of the o rbital fat deformity of the orbital globe. The no soft tissue gas. The bony orbit is grossly intact. The mandible, maxilla, zygomatic arch as, and nasal bone are intact. Paranasal sinuses are clear. CONCLUSION: Left periorbital and supraorbital soft tissue swelling without focal collections of gas. No extension retroseptal. Crescencio Young MD on October 11, 2017 at 12:40 Board Certified Radiologist. This report was verified electronically.
[2017-10-11] MEDS ORDERED: TRAM50TA PO (13:04)
[2017-10-11] MEDS ORDERED: CLINDAMYCIN INJ 600 MG in SODIUM CHLORIDE 0.9% INJ 100 ML IV ONE (13:15)
[2017-10-11 13:44] VITALS: RESP 16
== END 2017-10-11 14:03 | disposition home or self-care (01) ==
LOC: NEPD 10:12
DX: L02.01 Cutaneous abscess of face (principal); A49.02 Methicillin resistant Staphylococcus aureus infection, unspecified site; H92.02 Otalgia, left ear
CPT/HCPCS: 10060; 70487; 80048; 84703; 85025; 86403; 87070; 87186; 96361; 96374; 96375; 99285; J1885; J7030; Q9967

== ENCOUNTER 2017-11-07 09:58 | Emergency (ER) | payer SELFPAY ==
[~2017-11-07] VITALS: Ht 165.1 cm; Wt 65.0 kg
[~2017-11-07 09:58] MED LIST changes: +TRAM50TA PO
[2017-11-07 10:00] VITALS: BP 129/90; PULSE 96; RESP 14; TEMP 97.8; O2SAT 100
--- NOTE | 2017-11-07 10:57 | PD ---
HPI Chief Complaint: ENT Complaint Time Seen by Provider: 10:29 Travel History International Travel<30 days: No Contact w/Intl Traveler<30days: No Traveled to known affect area: No History of Present Illness HPI This is a 27-year-old female who presents to the emergency department with 4 days of sore throat, constant, severe, associated with white spots in the back of her throat and fever. She has a mild nonproductive cough. She also has an itchy rash in her groin and in her armpit areas. PFSH Past Medical History ADHD: No Autoimmune Disease: No Blood Disorders: No Cancer: No Cardiovascular Problems: No Diabetes: No Gastrointestinal Disorders: No Genitourinary: No Neurologic: No Psychiatric: No Respiratory: No Immunizations Current: Yes Migraines: No Seizures: No Thyroid Disease: No Ulcer: No ?: Not : 0 Past Surgical History Appendectomy: No Cholecystectomy: No Hysterectomy: Yes Other Surgery: Yes (in 1999 had surgery on bilateral wrists ) Social History Alcohol Use: No Tobacco Use: No Substance Use: Yes (heroin) Allergies-Medications (Allergen,Severity, Reaction): Coded Allergies: No Known Allergies (Unverified , 11/07/17) Reported Meds & Prescriptions Reported Meds & Active Scripts Active No Active Prescriptions or Reported Medications Review of Systems Except as stated in HPI: all other systems reviewed are Neg Physical Exam Narrative GENERAL:Well appearing, no acute distress SKIN: Patchy rough erythematous rash in the bilateral axillary areas and on the medial aspect of both thighs HEAD: Atraumatic. Normocephalic. EYES: Pupils equal and round. No injection or drainage. ENT: Posterior pharyngeal erythema, some edema of the uvula, exudate on the right tonsil, no asymmetry to suggest peritonsillar abscess NECK: Tender anterior cervical lymphadenopathy. CARDIOVASCULAR: Regular rate and rhythm. No murmur appreciated. RESPIRATORY: Clear to auscultation. Breath sounds equal bilaterally. GASTROINTESTINAL: Abdomen soft, non-tender, nondistended. MUSCULOSKELETAL: No obvious deformities. NEUROLOGICAL: Awake and alert. No obvious cranial nerve deficits. Moving all extremities. PSYCHIATRIC: Appropriate mood and affect; insight and judgment normal. Data Data Last Documented VS Vital Signs Date Time Temp Pulse Resp B/P (MAP) Pulse Ox O2 Delivery O2 Flow Rate FiO2 11/07/17 10:00 97.8 96 14 129/90 (103) 100 Orders Orders Group A Rapid Strep Screen (11/07/17 10:35) Strep Culture (Group A) (11/07/17 10:39) MDM Medical Decision Making Medical Screen Exam Complete: Yes Emergency Medical Condition: Yes Interpretation(s) strep negative Differential Diagnosis Strep pharyngitis, mononucleosis, paratonsillar abscess, scarlet fever Narrative Course This is a 27-year-old female who presents to the emergency department with sore throat that's been present for 4 days associated with a rash and fevers at home. Here in the emergency department she has tonsillar exudate, tender anterior cervical lymphadenopathy and a rough rash in the axilla and on the medial thighs. I suspect she has scarlet fever. Dyllan rapid strep was negative. Patient will be treated empirically for strep pharyngitis. I will also send a mononucleosis this test. Diagnosis Primary Impression: Pharyngitis Qualified Codes: J02.9 - Acute pharyngitis, unspecified Patient Instructions: General Instructions Additional Instructions: If you develop severe chest pain, shortness of breath, sweating, lightheadedness , dizziness or difficulty breathing return to the emergency department immediately. Followup with your primary care physician in 2-3 days if your symptoms are not resolved. Med/Other Pt SpecificInfo: Prescription(s) given Scripts Naproxen (Naproxen) 500 Mg Tab 500 MG PO BID, #30 TAB 0 Refills Prov: Eryn Edward MD 11/07/17 Penicillin V Potassium (Penicillin V Potassium) 500 Mg Tab 500 MG PO Q8H for Infection for 10 Days, #30 TAB 0 Refills Prov: Eryn Edward MD 11/07/17 Disposition: 01 DISCHARGE HOME Condition: Stable Eryn Edward MD Nov 07, 2017 10:57
[2017-11-07] MEDS ORDERED: NAPR500T2 PO (11:22)
[2017-11-07] MEDS ORDERED: PENI500T PO (11:22)
[2017-11-07] MEDS ORDERED: KETOROLAC TROMETHAMINE 60 MG/2 ML (IM) VIAL IM ONE (11:30)
[2017-11-07 13:17] LABS: MONOSCREEN NEG (NEG)
== END 2017-11-07 11:45 | disposition home or self-care (01) ==
LOC: NEPD 09:58
DX: J02.9 Acute pharyngitis, unspecified (principal); R50.9 Fever, unspecified; R21 Rash and other nonspecific skin eruption; F11.90 Opioid use, unspecified, uncomplicated
CPT/HCPCS: 86308; 87081; 87880; 96372; 99284; J1885

== ENCOUNTER 2017-12-03 16:18 | Inpatient (IN) | payer SELFPAY ==
[~2017-12-03] VITALS: Ht 165.1 cm; Wt 71.9 kg
[~2017-12-03 16:18] MED LIST changes: -BACT800T5 PO; -CEPH-460 PO; +NAPR500T2 PO; +PENI500T PO; -TRAM50TA PO
[2017-12-03 16:19] VITALS: BP 143/84; PULSE 103; RESP 20; TEMP 102.1; O2SAT 100
[2017-12-03] MEDS ORDERED: ACETAMINOPHEN 325 MG TAB PO ONE (16:45)
--- NOTE | 2017-12-03 17:04 | RADRPT ---
EXAM DATE/TIME: 12/03/2017 16:41 [facility] COMPARISON: No previous studies available for comparison. INDICATIONS : Chest pain and shortness of breath. Fever that started today. MEDICAL HISTORY : None. SURGICAL HISTORY : None. ENCOUNTER: Initial ACUITY: 1 day PAIN SCORE: 10/10 LOCATION: Bilateral chest FINDINGS: PA and lateral views of the chest demonstrate the lungs to be symmetrically aerated without evidence of mass, infiltrate or effusion. The cardiomediastinal contours are unremarkable. Osseous structure s are intact. CONCLUSION: The lungs are clear. No infiltrates seen. Crescencio Young MD on December 03, 2017 at 17:03 Board Certified Radiologist. This report was verified electronically.
[2017-12-03 18:03] LABS: AUTOMATED NEUTROPHIL # 12.1 TH/MM3 (1.8-7.7); BASOPHIL # 0.1 TH/MM3 (0-0.2); BASOPHIL % 0.4 % (0.0-2.0); EOSINOPHIL % 0.2 % (0.0-4.0); HEMATOCRIT 38.5 % (35.0-46.0); HEMOGLOBIN 13.3 GM/DL (11.6-15.3); LYMPHOCYTE # 0.8 TH/MM3 (1.0-4.8); MEAN CELL VOLUME 86.4 FL (80.0-100.0); MEAN CORPUSCULAR HEMOGLOBIN 29.8 PG (27.0-34.0); MEAN CORPUSCULAR HGB CONC 34.4 % (32.0-36.0); MEAN PLATELET VOLUME 8.8 FL (7.0-11.0); MONO % 7.1 % (0.0-8.0); NEUT % 86.3 % (16.0-70.0); PLATELET COUNT 237 TH/MM3 (150-450); RED BLOOD COUNT 4.45 MIL/MM3 (4.00-5.30); RED CELL DISTRIBUTION WIDTH 14.2 % (11.6-17.2); WHITE BLOOD COUNT 14.1 TH/MM3 (4.0-11.0)
[2017-12-03 18:13] LABS: PROTHROMBIN TIME - PATIENT 10.6 SEC (9.8-11.6)
[2017-12-03 18:24] LABS: ALBUMIN 3.2 GM/DL (3.4-5.0); AST (GOT) 21 U/L (15-37); BICARBONATE 26.7 MEQ/L (21.0-32.0); BLOOD UREA NITROGEN 5 MG/DL (7-18); CALCIUM 8.6 MG/DL (8.5-10.1); CHLORIDE 100 MEQ/L (98-107); CREATININE 0.71 MG/DL (0.50-1.00); GLOMERULAR FILTRATION RATE 100 ML/MIN (>89); GLUCOSE,RANDOM 72 MG/DL (74-106); MAGNESIUM 1.8 MG/DL (1.5-2.5); SODIUM (NA) 135 MEQ/L (136-145)
[2017-12-03 18:25] LABS: ALT (GPT) 63 U/L (10-53)
[2017-12-03 18:29] LABS: ALKALINE PHOSPHATASE 82 U/L (45-117); TOTAL BILIRUBIN ADULT 1.1 MG/DL (0.2-1.0); TOTAL PROTEIN 7.3 GM/DL (6.4-8.2); TROPONIN I LESS THAN 0.02 NG/ML (0.02-0.05)
[2017-12-03 20:00] VITALS: BP 130/75; PULSE 102; RESP 20; TEMP 98.8; O2SAT 99
[2017-12-03] MEDS ORDERED: KETOROLAC TROMETHAMINE 30 MG/ML (IVP) VIAL IV PUSH ONE (20:00)
[2017-12-03] MEDS ORDERED: PIPERACIL-TAZO 4.5 GM PREMIX 100 ML IV ONE (20:00)
[2017-12-03] MEDS ORDERED: SODIUM CHLOR 0.9% 1000 ML INJ 1,000 ML IV ONE ×2 (20:00→23:00)
[2017-12-03] MEDS ORDERED: VANCOMYCIN INJ 1,000 MG in SODIUM CHLOR 0.9% 250 ML INJ 250 ML IV ONE (20:00)
[2017-12-03 20:41] LABS: BACTERIA, URINE OCC /hpf; BILIRUBIN, URINE NEG (NEG); BLOOD, URINE NEG (NEG); GLUCOSE,URINE NEG (NEG); KETONE, URINE NEG (NEG); NITRITE,URINE NEG (NEG); SQUAMOUS EPITHELIAL CELL URINE 18 /hpf (0-5); URINE COLOR LIGHT-YELLOW (YELLW/STRAW); URINE LEUKOCYTE ESTERASE SMALL (NEG)
[2017-12-03 21:00] VITALS: BP 122/70; PULSE 104; RESP 20; TEMP 97.7; O2SAT 99
[2017-12-03] MEDS ORDERED: IOHEXOL 350 MG/ML 10 ML VIAL (for RAD DIAG) IVCONTRAST ONE (22:40)
--- NOTE | 2017-12-03 22:57 | PD ---
HPI . Fever Chief Complaint: Fever Time Seen by Provider: 19:53 Travel History International Travel<30 days: No Contact w/Intl Traveler<30days: No Traveled to known affect area: No History of Present Illness HPI 27-year-old female with no sniffing past medical history notes a right facial, down the turn into an abscess, presents with having fever, large draining abscess the right side of her face with right facial swelling going about her right eye. Patient notes no headache no visual changes no stiff neck. Patient denies IV drug abuse PFSH Past Medical History Narrative Medical Past medical history reviewed ADHD: No Autoimmune Disease: No Blood Disorders: No Cancer: No Cardiovascular Problems: No Diabetes: No Gastrointestinal Disorders: No Genitourinary: No Neurologic: No Psychiatric: No Respiratory: No Immunizations Current: Yes Migraines: No Seizures: No Thyroid Disease: No Ulcer: No ?: Not : 0 Past Surgical History Appendectomy: No Cholecystectomy: No Hysterectomy: Yes Other Surgery: Yes (in 1999 had surgery on bilateral wrists ) Social History Alcohol Use: No Tobacco Use: No Substance Use: Yes (heroin) Allergies-Medications (Allergen,Severity, Reaction): Coded Allergies: No Known Allergies (Unverified , 11/07/17) Reported Meds & Prescriptions Reported Meds & Active Scripts Active Naproxen 500 Mg Tab 500 Mg PO BID Penicillin V Potassium 500 Mg Tab 500 Mg PO Q8H 10 Days Narrative Medication Allergies and medications reviewed Review of Systems General / Constitutional: No: Fever Eyes: No: Visual changes HENT: No: Headaches, Neck Stiffness, Neck Pain Cardiovascular: No: Chest Pain or Discomfort Respiratory: No: Shortness of Breath Gastrointestinal: No: Abdominal Pain Genitourinary: No: Dysuria Musculoskeletal: No: Pain Skin: No Rash Neurologic: No: Weakness Psychiatric: No: Depression Endocrine: No: Polydipsia Hematologic/Lymphatic: No: Easy Bruising Physical Exam Narrative GENERAL: Awake and alert oriented 3, somewhat ill-appearing otherwise no acute distress. Heart rate 110 sinus tachycardia Lopressor normal SKIN: Warm and dry. Except for the patient's facial abscess, no rash, no cyanosis diaphoresis or pallor HEAD: Atraumatic. Normocephalic. Right draining facial abscess temporal region. Right facial swelling, slight periorbital swelling EYES: Pupils equal and round. No scleral icterus. No injection or drainage. Extremity muscles intact ENT: No nasal bleeding or discharge. Mucous membranes pink and moist. NECK: Trachea midline. No JVD. Supple nontender full range of motion CARDIOVASCULAR: Regular rate and rhythm. RESPIRATORY: No accessory muscle use. Clear to auscultation. Breath sounds equal bilaterally. GASTROINTESTINAL: Abdomen soft, non-tender, nondistended. Hepatic and splenic margins not palpable. MUSCULOSKELETAL: Extremities without clubbing, cyanosis, or edema. No obvious deformities. NEUROLOGICAL: Awake and alert. No obvious cranial nerve deficits. Motor grossly within normal limits. Five out of 5 muscle strength in the arms and legs. Normal speech. PSYCHIATRIC: Appropriate mood and affect; insight and judgment normal. Data Data Last Documented VS Vital Signs Date Time Temp Pulse Resp B/P (MAP) Pulse Ox O2 Delivery O2 Flow Rate FiO2 12/03/17 21:00 97.7 104 20 122/70 (87) 99 Room Air Orders Orders Complete Blood Count With Diff (12/03/17 16:31) Comprehensive Metabolic Panel (12/03/17 16:31) Prothrombin Time / Inr (Pt) (12/03/17 16:31) Act Partial Throm Time (Ptt) (12/03/17 16:31) Lactic Acid Sepsis Protocol (12/03/17 16:31) Magnesium (Mg) (12/03/17 16:31) Ckmb (Isoenzyme) Profile (12/03/17 16:31) Troponin I (12/03/17 16:31) Urinalysis - C+S If Indicated (12/03/17 16:31) Influenzae A/B Antigen (12/03/17 16:31) Chest, Pa & Lat (12/03/17 16:31) Acetaminophen (Tylenol) (12/03/17 16:45) Ed Urine Pregnancytest Poc (12/03/17 18:36) D-Dimer (12/03/17 19:56) Vancomycin Inj (Vancomycin Inj) (12/03/17 20:00) Piperacil-Tazo 4.5 Gm Premix (Zosyn 4.5 (12/03/17 20:00) Sodium Chlor 0.9% 1000 Ml Inj (Ns 1000 M (12/03/17 20:00) Ketorolac Inj (Toradol Inj) (12/03/17 20:00) Urine Culture (12/03/17 18:35) Electrocardiogram (12/03/17 17:36) Ct Facial Bones W Iv Contrast (12/03/17 ) Iohexol 350 Inj (Omnipaque 350 Inj) (12/03/17 22:40) Labs Laboratory Tests Test 12/03/17 17:41 12/03/17 18:35 12/03/17 20:05 White Blood Count 14.1 TH/MM3 Red Blood Count 4.45 MIL/MM3 Hemoglobin 13.3 GM/DL Hematocrit 38.5 % Mean Corpuscular Volume 86.4 FL Mean Corpuscular Hemoglobin 29.8 PG Mean Corpuscular Hemoglobin Concent 34.4 % Red Cell Distribution Width 14.2 % Platelet Count 237 TH/MM3 Mean Platelet Volume 8.8 FL Neutrophils (%) (Auto) 86.3 % Lymphocytes (%) (Auto) 6.0 % Monocytes (%) (Auto) 7.1 % Eosinophils (%) (Auto) 0.2 % Basophils (%) (Auto) 0.4 % Neutrophils # (Auto) 12.1 TH/MM3 Lymphocytes # (Auto) 0.8 TH/MM3 Monocytes # (Auto) 1.0 TH/MM3 Eosinophils # (Auto) 0.0 TH/MM3 Basophils # (Auto) 0.1 TH/MM3 CBC Comment DIFF FINAL Differential Comment Prothrombin Time 10.6 SEC Prothromb Time International Ratio 1.0 RATIO Activated Partial Thromboplast Time 28.8 SEC Blood Urea Nitrogen 5 MG/DL Creatinine 0.71 MG/DL Random Glucose 72 MG/DL Total Protein 7.3 GM/DL Albumin 3.2 GM/DL Calcium Level 8.6 MG/DL Magnesium Level 1.8 MG/DL Alkaline Phosphatase 82 U/L Aspartate Amino Transf (AST/SGOT) 21 U/L Alanine Aminotransferase (ALT/SGPT) 63 U/L Total Bilirubin 1.1 MG/DL Sodium Level 135 MEQ/L Potassium Level 3.1 MEQ/L Chloride Level 100 MEQ/L Carbon Dioxide Level 26.7 MEQ/L Anion Gap 8 MEQ/L Estimat Glomerular Filtration Rate 100 ML/MIN Lactic Acid Level 1.7 mmol/L Total Creatine Kinase 24 U/L Troponin I LESS THAN 0.02 NG/ML Urine Color LIGHT-YELLOW Urine Turbidity HAZY Urine pH 6.0 Urine Specific Melvin 1.004 Urine Protein NEG mg/dL Urine Glucose (UA) NEG mg/dL Urine Ketones NEG mg/dL Urine Occult Blood NEG Urine Nitrite NEG Urine Bilirubin NEG Urine Urobilinogen LESS THAN 2.0 MG/DL Urine Leukocyte Esterase SMALL Urine RBC 1 /hpf Urine WBC 1 /hpf Urine Squamous Epithelial Cells 18 /hpf Urine Bacteria OCC /hpf Microscopic Urinalysis Comment CATH-CULTURE IND D-Dimer Quantitative (PE/DVT) 0.46 MG/L FEU [facility] Medical Decision Making Medical Screen Exam Complete: Yes Emergency Medical Condition: Yes Medical Record Reviewed: Yes Differential Diagnosis Right facial abscess, periorbital/right facial cellulitis Narrative Course Patient cultured, given IV antibiotics, pain medications, and to pyretics. IV fluids. CT facial E contrast consistent with abscess and right facial sialitis. S1 hospitalist service Dr. Lara, admitted with oral maxillofacial Dr. Friend consultation Diagnosis Primary Impression: Facial abscess Admitting Information Admitting Physician Requests: Admit Willis Cain MD Dec 03, 2017 22:57
--- NOTE | 2017-12-03 23:14 | RADRPT ---
EXAM DATE/TIME: 12/03/2017 22:34 [facility] COMPARISON: CT FACIAL BONES W CONTRAST, October 11, 2017, 12:01. INDICATIONS : Right side facial swelling and fever. IV CONTRAST: 75 cc Omnipaque 350 (iohexol) IV RADIATION DOSE: 36.33 CTDIvol (mGy) MEDICAL HISTORY : Substance abuse. SURGICAL HISTORY : Hysterectomy. ENCOUNTER: Initial ACUITY: 1 week PAIN SCALE: 9/10 LOCATION: Right facial TECHNIQUE: Volumetric scanning of the facial bones was performed. Using automated exposure control and adjustme nt of the mA and/or kV according to patient size, radiation dose was kept as low as reasonably achiev able to obtain optimal diagnostic quality images. DICOM format image data is available electronicall y for review and comparison. FINDINGS: ORBITS: The orbital and infraorbital osseous structures are intact. The retroconal structures have a normal configuration. No radiopaque foreign bodies are seen. NASAL BONE: The nasal bone and maxillary spine are intact ZYGOMATIC ARCHES: Symmetric without evidence of fracture. SINUSES: The maxillary, ethmoid and frontal sinuses are intact. No air-fluid levels seen. NASAL CAVITY: The nasal septum is intact and midline. The lacrimal ducts are intact. SOFT TISSUES: No radiopaque foreign bodies seen. There is focal soft tissue swelling over the lateral right orbit a nd frontal bone with mild skin thickening. There are subtle attenuation areas in this region with no gas bubble. There is apparent overlying bandage. There is no underlying bony abnormality. INTRACRANIAL: No intracranial air seen. CRIBIFORM PLATE: Grossly intact. CONCLUSION: Focal soft tissue swelling and skin thickening along the right lateral orbit and fron brittny bone with no underlying bony abnormality or gas bubbles. There is total low density fluid and the finding is most characteristic of infection and/or abscess. aSl Hercules MD on December 03, 2017 at 23:09 Board Certified Radiologist. This report was verified electronically.
[2017-12-04] VITALS: BP_SYST 126; BP_DIAS 69; BP_DIAS 79; PULSE 91; RESP 20; TEMP 98.2; O2SAT 92
[2017-12-04] MEDS ORDERED: POTASSIUM CHLORIDE 20 MEQ CONTROLLED RELEASE TAB PO ONE (00:30)
[2017-12-04] MEDS ORDERED: ACETAMINOPHEN 325 MG TAB PO PRN (00:30)
[2017-12-04] MEDS ORDERED: ONDANSETRON HCL 4 MG/2 ML VIAL IVP PRN (00:30)
[2017-12-04] MEDS ORDERED: NALOXONE HCL 0.4 MG/ML AMP IV PUSH PRN (00:30)
[2017-12-04] MEDS ORDERED: SODIUM CHLORIDE 0.9% FLUSH 10 ML FLUSH IV FLUSH PRN (00:30)
--- NOTE | 2017-12-04 00:52 | HHI.HP ---
[facility] Service [facility] Primary Care Physician No Primary Care Physician Admission Diagnosis Right facial Abscess/Cellulitis Diagnoses: Travel History International Travel<30 Days: No Contact w/Intl Traveler <30 Da: No Traveled to Known Affected Are: No History of Present Illness 27-year-old female with past medical history significant for hepatitis C and history of IV drug abuse presents to the emergency department for evaluation of facial abscess. The patient reports that approximately 4 days ago she began to have a swelling on her right temporal region that has since expanded in size and become exquisitely painful. The lesion is draining purulent material. Patient endorses fevers and chills for the past several days. She denies any chest pain or shortness of breath. Denies nausea/vomiting/diarrhea. Review of Systems Except as stated in HPI: all other systems reviewed are Neg Past Family Social History Past Medical History Hepatitis C History of IV drug abuse Past Surgical History 2 Hysterectomy Reported Medications Reported Meds & Active Scripts Active Naproxen 500 Mg Tab 500 Mg PO BID Penicillin V Potassium 500 Mg Tab 500 Mg PO Q8H 10 Days Allergies: Coded Allergies: No Known Allergies (Unverified , 11/07/17) Family History Father with diabetes mellitus Social History Denies tobacco. Quit using IV methamphetamine and opiates approximately 5 months ago. Denies alcohol. Physical Exam Vital Signs Vital Signs Date Time Temp Pulse Resp B/P (MAP) Pulse Ox O2 Delivery O2 Flow Rate FiO2 12/04/17 00:00 88 16 126/69 (88) 99 12/03/17 21:00 97.7 104 20 122/70 (87) 99 Room Air 12/03/17 20:00 98.8 102 20 130/75 (93) 99 Room Air 12/03/17 16:19 102.1 103 20 143/84 (103) 100 Room Air Physical Exam GENERAL: female lying in bed SKIN: 3 cm round draining lesion on the right hoahaoism. Surrounding erythema without fluctuance. HEAD: Atraumatic. Normocephalic. No temporal or scalp tenderness. EYES: Pupils equal round and reactive. Extraocular motions intact. No scleral icterus. No injection or drainage. ENT: Nose without bleeding, purulent drainage or septal hematoma. Throat without erythema, tonsillar hypertrophy or exudate. Uvula midline. Airway patent. NECK: Trachea midline. No JVD or lymphadenopathy. Supple, nontender, no meningeal signs. CARDIOVASCULAR: Regular rate and rhythm without murmurs, gallops, or rubs. RESPIRATORY: Clear to auscultation. Breath sounds equal bilaterally. No wheezes , rales, or rhonchi. GASTROINTESTINAL: Abdomen soft, non-tender, nondistended. No hepato-splenomegaly , or palpable masses. No guarding. MUSCULOSKELETAL: Extremities without clubbing, cyanosis, or edema. No joint tenderness, effusion, or edema noted. No calf tenderness. NEUROLOGICAL: Awake and alert. Cranial nerves II through XII intact. Motor and sensory grossly within normal limits. Normal speech. Laboratory Laboratory Tests Test 12/03/17 17:41 12/03/17 18:35 12/03/17 20:05 12/03/17 23:25 White Blood Count 14.1 Red Blood Count 4.45 Hemoglobin 13.3 Hematocrit 38.5 Mean Corpuscular Volume 86.4 Mean Corpuscular Hemoglobin 29.8 Mean Corpuscular Hemoglobin Concent 34.4 Red Cell Distribution Width 14.2 Platelet Count 237 Mean Platelet Volume 8.8 Neutrophils (%) (Auto) 86.3 Lymphocytes (%) (Auto) 6.0 Monocytes (%) (Auto) 7.1 Eosinophils (%) (Auto) 0.2 Basophils (%) (Auto) 0.4 Neutrophils # (Auto) 12.1 Lymphocytes # (Auto) 0.8 Monocytes # (Auto) 1.0 Eosinophils # (Auto) 0.0 Basophils # (Auto) 0.1 CBC Comment DIFF FINAL Differential Comment Prothrombin Time 10.6 Prothromb Time International Ratio 1.0 Activated Partial Thromboplast Time 28.8 Blood Urea Nitrogen 5 Creatinine 0.71 Random Glucose 72 Total Protein 7.3 Albumin 3.2 Calcium Level 8.6 Magnesium Level 1.8 Alkaline Phosphatase 82 Aspartate Amino Transf (AST/SGOT) 21 Alanine Aminotransferase (ALT/SGPT) 63 Total Bilirubin 1.1 Sodium Level 135 Potassium Level 3.1 Chloride Level 100 Carbon Dioxide Level 26.7 Anion Gap 8 Estimat Glomerular Filtration Rate 100 Lactic Acid Level 1.7 1.3 Total Creatine Kinase 24 Troponin I LESS THAN 0.02 Urine Color LIGHT-YELLOW Urine Turbidity HAZY Urine pH 6.0 Urine Specific [place] 1.004 Urine Protein NEG Urine Glucose (UA) NEG Urine Ketones NEG Urine Occult Blood NEG Urine Nitrite NEG Urine Bilirubin NEG Urine Urobilinogen LESS THAN 2.0 Urine Leukocyte Esterase SMALL Urine RBC 1 Urine WBC 1 Urine Squamous Epithelial Cells 18 Urine Bacteria OCC Microscopic Urinalysis Comment CATH-CULTURE IND D-Dimer Quantitative (PE/DVT) 0.46 Date/Time Source Procedure Growth Status 12/03/17 17:41 Nasal Aspirate Influenza Types A,B Antigen (TERRANCE) - Final NEGATIVE FOR FLU A AND B ANTIGEN.... Complete 12/03/17 18:35 Urine Catheterized Urine Urine Culture Pending Received 12/03/17 22:45 Wound Face Gram Stain Pending Received 12/03/17 22:45 Wound Face Wound Culture Pending Received Result Diagram: 12/03/17 17412/03/17 174 Anthonyrini VTE Risk Assessment Caprini VTE Risk Assessment: Mod/High Risk (score >= 2) Caprini Risk Assessment Model Point Value = 1 Point Value = 2 Point Value = 3 Point Value = 5 Age 41-60 Minor surgery BMI > 25 kg/m2 Swollen legs Varicose veins or History of unexplained or recurrent spontaneous Oral contraceptives or hormone replacement Sepsis (< 1 month) Serious lung disease, including pneumonia (< 1 month) Abnormal pulmonary function Acute myocardial infarction Congestive heart failure (< 1 month) History of inflammatory bowel disease Medical patient at bed rest Age 61-74 Arthroscopic surgery Major open surgery (> 45 min) Laparoscopic surgery (> 45 min) Malignancy Confined to bed (> 72 hours) Immobilizing plaster cast Central venous access Age >= 75 History of VTE Family history of VTE Factor V Leiden Prothrombin [id number] Lupus anticoagulant Anticardiolipin antibodies Elevated serum homocysteine Heparin-induced thrombocytopenia Other congenital or acquired thrombophilia Stroke (< 1 month) Elective arthroplasty Hip, pelvis, or leg fracture Acute spinal cord injury (< 1 month) Prophylaxis Regimen Total Risk Factor Score Risk Level Prophylaxis Regimen 0-1 Low Early ambulation 2 Moderate Order ONE of the following: *Sequential Compression Device (SCD) *Heparin 5000 units SQ BID 3-4 Higher Order ONE of the following medications: *Heparin 5000 units SQ TID *Enoxaparin/Lovenox 40 mg SQ daily (WT < 150 kg, CrCl > 30 mL/min) *Enoxaparin/Lovenox 30 mg SQ daily (WT < 150 kg, CrCl > 10-29 mL/min) *Enoxaparin/Lovenox 30 mg SQ BID (WT < 150 kg, CrCl > 30 mL/min) AND/OR *Sequential Compression Device (SCD) 5 or more Highest Order ONE of the following medications: *Heparin 5000 units SQ TID (Preferred with Epidurals) *Enoxaparin/Lovenox 40 mg SQ daily (WT < 150 kg, CrCl > 30 mL/min) *Enoxaparin/Lovenox 30 mg SQ daily (WT < 150 kg, CrCl > 10-29 mL/min) *Enoxaparin/Lovenox 30 mg SQ BID (WT < 150 kg, CrCl > 30 mL/min) AND *Sequential Compression Device (SCD) Assessment and Plan Assessment and Plan Assessment/plan: 1. Facial cellulitis/sepsis Patient febrile, tachycardic with leukocytosis Maxillofacial CT significant for focal soft tissue swelling and skin thickening along the right lateral orbit and frontal bone with no underlying bony abnormality or gas bubbles. Consistent with infection versus abscess Vancomycin/Zosyn Wound, blood cultures pending Wound currently draining, consider OMFS consult if drainage stops or wound enlarges Tailor antibiotics once sensitivities result 2. Hypokalemia Status post repletion Follow BMP 3. Hepatitis C Follow-up as outpatient Stable FEN Regular diet Electrolytes: As above Ambulation Physician Certification 2 Midnight Certification Type: Admission for Inpatient Services Order for Inpatient Services The services are ordered in accordance with Medicare regulations or non- Medicare payer requirements, as applicable. In the case of services not specified as inpatient-only, they are appropriately provided as inpatient services in accordance with the 2-midnight benchmark. Estimated LOS (days): 2 2 days is the estimated time the patient will need to remain in the hospital, assuming treatment plan goals are met and no additional complications. Post-Hospital Plan: Not yet determined Roxane Lara MD Dec 04, 2017 00:52
[2017-12-04] MEDS: SODIUM CHLOR 0.9% 1000 ML INJ 1,000 ML IV SCH ×3 (01:30→20:19)
[2017-12-04] MEDS ORDERED: KETOROLAC TROMETHAMINE 30 MG/ML (IVP) VIAL IV PUSH ONE ×2 (01:45→14:00)
[2017-12-04] MEDS ORDERED: VANCOMYCIN INJ 750 MG in SODIUM CHLOR 0.9% 250 ML INJ 250 ML IV ONE (03:00)
[2017-12-04] MEDS: PIPERACIL-TAZO 3.375 GM PREMIX 50 ML IV SCH ×4 (03:06→20:19)
[2017-12-04 04:46] VITALS: BP 127/63; PULSE 94; RESP 20; TEMP 99; O2SAT 99
[2017-12-04 08:00] VITALS: BP 121/71; PULSE 91; RESP 17; TEMP 100.5; O2SAT 100
[2017-12-04] MEDS: SODIUM CHLORIDE 0.9% FLUSH 10 ML FLUSH IV FLUSH SCH ×2 (08:05→20:19)
--- NOTE | 2017-12-04 08:13 | EKG ---
Date Performed: 12/03/2017 Time Performed: 17:36:06 PTAGE: 27 years EKG: Sinus rhythm NORMAL ECG PREVIOUS TRACING : 05/25/2009 04.28 DOCTOR: Karthik Thurston Interpretating Date/Time 12/04/2017 08:12:20
[2017-12-04 12:00] VITALS: BP 132/76; PULSE 100; RESP 19; TEMP 98.9; O2SAT 100
[2017-12-04 16:00] VITALS: BP 111/65; PULSE 98; RESP 19; TEMP 99.2; O2SAT 100
--- NOTE | 2017-12-04 16:48 | HHI.PR ---
Subjective Remarks The patient is complaining of pain in the right side of the face. Denies fevers or chills. States she has difficulty opening her eye. Denies chest pain or shortness of breath. Objective Vitals Vital Signs Date Time Temp Pulse Resp B/P (MAP) Pulse Ox O2 Delivery O2 Flow Rate FiO2 12/04/17 12:00 98.9 100 19 132/76 (94) 100 12/04/17 08:00 100.5 91 17 121/71 (88) 100 12/04/17 04:46 99.0 94 20 127/63 (84) 99 12/04/17 00:00 98.2 91 20 126/79 (95) 92 12/04/17 00:00 88 16 126/69 (88) 99 12/03/17 21:00 97.7 104 20 122/70 (87) 99 Room Air 12/03/17 20:00 98.8 102 20 130/75 (93) 99 Room Air I/O 12/03/17 12/03/17 12/03/17 12/04/17 12/04/17 12/04/17 07:00 15:00 23:00 07:00 15:00 23:00 Intake Total 1350 ml 50 ml 307.5 ml Balance 1350 ml 50 ml 307.5 ml Intake IV Total 1350 ml 50 ml 307.5 ml # Voids 1 Result Diagram: 12/03/17 1741 12/03/17 1741 Imaging Last Impressions Chest X-Ray 12/03/17 1631 Signed Impressions: Service Date/Time: Sunday, December 03, 2017 16:41 - CONCLUSION: The lungs are clear. No infiltrates seen. Crescencio Young MD Maxillofacial CT 12/03/17 0000 Signed Impressions: Service Date/Time: Sunday, December 03, 2017 22:34 - CONCLUSION: Focal soft tissue swelling and skin thickening along the right lateral orbit and frontal bone with no underlying bony abnormality or gas bubbles. There is total low density fluid and the finding is most characteristic of infection and/or abscess. Sal Hercules MD Objective Remarks GENERAL: female lying in bed SKIN: 3 cm round draining lesion on the right zoroastrianism. Surrounding erythema without fluctuance and warmth to touch HEAD: Atraumatic. Normocephalic. No temporal or scalp tenderness. EYES: Pupils equal round and reactive. Extraocular motions intact. No scleral icterus. No injection or drainage. ENT: Nose without bleeding, purulent drainage or septal hematoma. Throat without erythema, tonsillar hypertrophy or exudate. Uvula midline. Airway patent. NECK: Trachea midline. No JVD or lymphadenopathy. Supple, nontender, no meningeal signs. CARDIOVASCULAR: Regular rate and rhythm without murmurs, gallops, or rubs. RESPIRATORY: Clear to auscultation. Breath sounds equal bilaterally. No wheezes , rales, or rhonchi. GASTROINTESTINAL: Abdomen soft, non-tender, nondistended. No hepato-splenomegaly , or palpable masses. No guarding. MUSCULOSKELETAL: Extremities without clubbing, cyanosis, or edema. No joint tenderness, effusion, or edema noted. No calf tenderness. NEUROLOGICAL: Awake and alert. Cranial nerves II through XII intact. Motor and sensory grossly within normal limits. Normal speech. Medications and IVs Current Medications Medications (Trade) Dose Ordered Sig/Yu Route Start Time Stop Time Status Last Admin Pharmacy Profile Note 0 ml @ 0 mls/hr UNSCH OTHER 12/04/17 20:30 Piperacillin Sod/ Tazobactam Sod 50 ml @ 100 mls/hr Q6H IV 12/04/17 03:00 12/04/17 13:51 Sodium Chloride 1,000 ml @ 100 mls/hr Q10H IV 12/04/17 00:16 12/04/17 01:30 (NS Flush) 2 ml UNSCH PRN IV FLUSH 12/04/17 00:30 (NS Flush) 2 ml BID IV FLUSH 12/04/17 09:00 (Tylenol) 650 mg Q4H PRN PO 12/04/17 00:30 12/04/17 08:47 (Zofran Inj) 4 mg Q6H PRN IVP 12/04/17 00:30 (Narcan Inj) 0.4 mg UNSCH PRN IV PUSH 12/04/17 00:30 Vancomycin HCl 1250 mg/Sodium Chloride 262.5 ml @ 250 mls/hr Q12H IV 12/04/17 15:00 Miscellaneous Information SPECIFIC LAB TO BE DRAWN:VANCOMY... ONCE ONCE .XX 12/06/17 02:45 12/06/17 02:46 A/P Problem List: (1) Sepsis ICD Code: A41.9 - Sepsis, unspecified organism Plan: Sepsis present on admission patient with fever, tachycardia and leukocytosis. Maxillofacial CT shows significant soft tissue swelling and skin thickening along the right lateral orbit and frontal bone with no underlying bony abnormality or gas bubbles consistent with cellulitis and abscess. Patient started IV vancomycin IV Zosyn, continue. Blood cultures pending, wound culture with immature growth being reincubated. (2) Facial abscess ICD Code: L02.01 - Cutaneous abscess of face Status: Acute Plan: We will consult OMFS. We will place on oral Percocet and IV Toradol for pain control. (3) Hypokalemia ICD Code: E87.6 - Hypokalemia Plan: Replaced orally. Monitor BMP. (4) Hepatitis C ICD Code: B19.20 - Unspecified viral hepatitis C without hepatic coma Plan: ALT elevated at 63, AST normal. We will check hepatitis C viral load. Assessment and Plan DVT prophylaxis: SCDs. Problem Qualifiers (1) Sepsis: Qualified Codes: A41.9 - Sepsis, unspecified organism (2) Hepatitis C: Kendrick Markham MD Dec 04, 2017 16:48
[2017-12-04] MEDS: VANCOMYCIN INJ 1,250 MG in SODIUM CHLOR 0.9% 250 ML INJ 250 ML IV SCH (17:01)
[2017-12-04] MEDS ORDERED: oxyCODONE/ACETAMINOPHEN 5 MG/325 MG TAB PO PRN (19:45)
[2017-12-04 20:00] VITALS: BP 125/77; PULSE 104; RESP 22; TEMP 100; O2SAT 99
[2017-12-04] MEDS ORDERED: Vancomycin Consult Pharmacy 1 EA OTHER SCH (20:30)
[2017-12-04] MEDS ORDERED: LIDOCAINE HCL 1% 50 ML VIAL ONE (21:16)
--- NOTE | 2017-12-04 22:16 | MB ---
cc: BROOKE FRIEND DMD DATE OF CONSULTATION: 12/04/2017 REASON FOR CONSULTATION: Right temporal abscess / cellulitis. HISTORY OF PRESENT ILLNESS: This is a 27-year-old female who was seen and examined this evening. Her nurses are at bedside. She reports that about a few days ago she popped a pimple on the right temporal region and ever since then she began to have pain and swelling in the right temporal region and it is becoming more painful. I have seen and examined this patient this evening. She is alert, awake and oriented but reports pain at the site. She has a bandage over the site. She has a past history of MRSA also. PAST MEDICAL HISTORY: Hepatitis C. IV drug abuse. MRSA. PAST SURGICAL HISTORY , hysterectomy. ALLERGIES Denied. SOCIAL HISTORY Denies any tobacco. She reports that she stopped using any opioids five months ago. Denies any alcohol use. PHYSICAL EXAMINATION: Vital signs: Temperature 99.2, pulse is 98, respiration 18, blood pressure is 111/65, oxygen saturation 100%. Examination shows the right temporal region lateral to the orbit, there is a raised 2 cm round lesion, with erythema. There is a little pus that is noted. It is tender to palpation. It almost looks like crusting, ulcerated. Tender to palpation. It is well-circumscribed. CT scan of the facial bones shows an area in the right temporal region with the appearance of an abscess collection which is raised. LABORATORY DATA: White count is 14.1 with an H&H of 13.3 and 35.8, platelets are 237. IMPRESSION AND PLAN This is a 27-year-old female who several days ago popped a pimple now she has got a swelling on the right temporal region. Past history of MRSA. The plan is to do an incision and drainage at this point to relieve any purulence, any pressure, and hopefully that will help reduce her tenderness and pain. My impression at this point is most likely consistent with MRSA. Recommend Infectious Disease consult for management. We will plan to culture this also if any purulence comes out. Brooke Friend DMD [employer] SUPERVISOR/GUIDO /9:48 PM /9:58 PM
--- NOTE | 2017-12-04 22:19 | HHI.PR ---
Immediate Post Op Note Procedure Date: Dec 04, 2017 Pre Op Diagnosis: right temporal head abscess Post Op Diagnosis: silvia Surgeon: Cameron Friend Home Economics Teacher(s): Sol morales RN Procedure: I&D right temporal head abscess Findings: pus Complications: none Specimen(s) removed: pus - sent for culture Estimated blood loss: minimal Anesthesia: Local (1%lidocaine 2cc) Drains: Leland (1/4 inch kathrine ) Date/Time of Procedure: SEE SURGICAL CARE RECORD Cameron Friend DMD Dec 04, 2017 22:19
[2017-12-05] VITALS: BP 129/80; PULSE 97; RESP 22; TEMP 97.8; O2SAT 99
[2017-12-05] MEDS: oxyCODONE/ACETAMINOPHEN 5 MG/325 MG TAB PO PRN ×6 (01:20→21:57)
[2017-12-05] MEDS: PIPERACIL-TAZO 3.375 GM PREMIX 50 ML IV SCH ×2 (02:52→09:47)
[2017-12-05] MEDS: VANCOMYCIN INJ 1,250 MG in SODIUM CHLOR 0.9% 250 ML INJ 250 ML IV SCH ×2 (03:28→17:50)
[2017-12-05] MEDS: SODIUM CHLOR 0.9% 1000 ML INJ 1,000 ML IV SCH ×2 (03:29→16:16)
[2017-12-05 04:00] VITALS: BP 122/74; PULSE 92; RESP 20; TEMP 96.5; O2SAT 99
[2017-12-05 07:28] LABS: AUTOMATED NEUTROPHIL # 9.3 TH/MM3 (1.8-7.7); BASOPHIL # 0.1 TH/MM3 (0-0.2); BASOPHIL % 0.5 % (0.0-2.0); EOSINOPHIL # 0.2 TH/MM3 (0-0.4); EOSINOPHIL % 1.4 % (0.0-4.0); HEMATOCRIT 37.2 % (35.0-46.0); HEMOGLOBIN 12.5 GM/DL (11.6-15.3); LYMPH % 14.2 % (9.0-44.0); LYMPHOCYTE # 1.7 TH/MM3 (1.0-4.8); MEAN CELL VOLUME 86.6 FL (80.0-100.0); MEAN CORPUSCULAR HEMOGLOBIN 29.1 PG (27.0-34.0); MEAN CORPUSCULAR HGB CONC 33.7 % (32.0-36.0); MEAN PLATELET VOLUME 9.8 FL (7.0-11.0); MONO % 7.7 % (0.0-8.0); MONOCYTE # 0.9 TH/MM3 (0-0.9); NEUT % 76.2 % (16.0-70.0); PLATELET COUNT 249 TH/MM3 (150-450); RED CELL DISTRIBUTION WIDTH 14.2 % (11.6-17.2); WHITE BLOOD COUNT 12.3 TH/MM3 (4.0-11.0)
[2017-12-05 07:41] LABS: ALBUMIN 2.7 GM/DL (3.4-5.0); AST (GOT) 19 U/L (15-37); BICARBONATE 28.1 MEQ/L (21.0-32.0); BLOOD UREA NITROGEN 3 MG/DL (7-18); CALCIUM 8.9 MG/DL (8.5-10.1); CHLORIDE 104 MEQ/L (98-107); CREATININE 0.62 MG/DL (0.50-1.00); GLOMERULAR FILTRATION RATE 116 ML/MIN (>89); GLUCOSE,RANDOM 91 MG/DL (74-106); SODIUM (NA) 138 MEQ/L (136-145)
[2017-12-05 07:42] LABS: ALT (GPT) 63 U/L (10-53); PHOSPHORUS 2.4 MG/DL (2.5-4.9)
[2017-12-05 07:44] LABS: ALKALINE PHOSPHATASE 114 U/L (45-117); TOTAL BILIRUBIN ADULT 0.6 MG/DL (0.2-1.0); TOTAL PROTEIN 7.1 GM/DL (6.4-8.2)
[2017-12-05 08:00] VITALS: BP 132/72; PULSE 91; RESP 19; TEMP 97.6; O2SAT 98
[2017-12-05] MEDS: SODIUM CHLORIDE 0.9% FLUSH 10 ML FLUSH IV FLUSH SCH ×2 (09:00→19:48)
[2017-12-05 12:00] VITALS: BP 132/80; PULSE 100; RESP 18; TEMP 98.3; O2SAT 100
--- NOTE | 2017-12-05 13:36 | PD.ID.CON ---
History of Present Illness Service ID Consult Requested By Dr Briones Reason for Consult facial abscess Primary Care Physician No Primary Care Physician Diagnoses: History of Present Illness 27 yo female with h/o IVDU, last time 5 mos ago She develepped a swollen, painful lesion on her R sikh area after she squeeezed a pimple Presented with fever 102 F, leukocytosis [address] showed abscess in R temporal area She went for I+D by Dr Briones H/o MRSA She has GPC in clusters on Gstain Blood clx negative @ 1 dfay Polimictrobial urine culture with UA having 18 sq epi cells She c/o chest pain, pleuritic type as well x few weeks, but her CXR was clear Review of Systems Except as stated in HPI: all other systems reviewed are Neg Past Family Social History Allergies: Coded Allergies: No Known Allergies (Unverified , 11/07/17) Past Medical History IVDU Hep C MRSa Past Surgical History hysterctomy (procedure complication) Csecrtion Active Ordered Medications Medications where reviewed in EMR Antibiotics Include: zosyn vanco Family History reviewed non contributor Social History quit IVDU no tobacco no ETOH Physical Exam Vital Signs Vital Signs Date Time Temp Pulse Resp B/P (MAP) Pulse Ox O2 Delivery O2 Flow Rate FiO2 12/05/17 12:00 98.3 100 18 132/80 (97) 100 12/05/17 08:00 97.6 91 19 132/72 (92) 98 12/05/17 04:00 96.5 92 20 122/74 (90) 99 12/05/17 00:00 97.8 97 22 129/80 (96) 99 12/04/17 20:00 100.0 104 22 125/77 (93) 99 12/04/17 16:00 99.2 98 19 111/65 (80) 100 Physical Exam CONSTITUTIONAL/GENERAL: This is an adequately nourished patient, in no apparent distress. TUBES/LINES/DRAINS: SKIN: No jaundice, rashes, or lesions. E Skin temperature appropriate. Not diaphoretic. HEAD: Atraumatic. Normocephalic. R temporal area with mild edema, erytem, Pentrose drain in place with serosa mostly dry d/c EYES: Pupils equal and round and reactive. Extraocular motions intact. Minimal scleral icterus. No injection or drainage. Fundi not examined. ENT: Hearing grossly normal. Nose without bleeding or purulent drainage. Throat without visible erythema, exudates, masses, or lesions. NECK: Trachea midline. Supple, nontender. No palpable thyroid enlargement or nodularity. CARDIOVASCULAR: Regular rate and rhythm without murmurs, gallops, or rubs. No JVD. Peripheral pulses symmetric. RESPIRATORY/CHEST: Symmetric, unlabored respirations. Clear to auscultation. Breath sounds equal bilaterally. No wheezes, rales, or rhonchi. GASTROINTESTINAL: Abdomen soft, non-tender, nondistended. No hepato-splenomegaly , or palpable masses. No guarding. Bowel sounds present. GENITOURINARY: Without palpable bladder distension. Beaver catheter in place. MUSCULOSKELETAL: Extremities without clubbing, cyanosis, or edema. No joint tenderness or effusion noted. No calf tenderness. No mottling or clubbing. LYMPHATICS: No palpable cervical or supraclavicular adenopathy. NEUROLOGICAL: Awake and alert. Motor and sensory grossly within normal limits. Follows commands. Clear speech. Moves all extremities. PSYCHIATRIC: No obvious anxiety/depression. no apparent hallucinations or other psychotic thought process. Laboratory Laboratory Tests Test 12/05/17 06:02 White Blood Count 12.3 Red Blood Count 4.30 Hemoglobin 12.5 Hematocrit 37.2 Mean Corpuscular Volume 86.6 Mean Corpuscular Hemoglobin 29.1 Mean Corpuscular Hemoglobin Concent 33.7 Red Cell Distribution Width 14.2 Platelet Count 249 Mean Platelet Volume 9.8 Neutrophils (%) (Auto) 76.2 Lymphocytes (%) (Auto) 14.2 Monocytes (%) (Auto) 7.7 Eosinophils (%) (Auto) 1.4 Basophils (%) (Auto) 0.5 Neutrophils # (Auto) 9.3 Lymphocytes # (Auto) 1.7 Monocytes # (Auto) 0.9 Eosinophils # (Auto) 0.2 Basophils # (Auto) 0.1 CBC Comment DIFF FINAL Differential Comment Blood Urea Nitrogen 3 Creatinine 0.62 Random Glucose 91 Total Protein 7.1 Albumin 2.7 Calcium Level 8.9 Phosphorus Level 2.4 Magnesium Level 2.0 Alkaline Phosphatase 114 Aspartate Amino Transf (AST/SGOT) 19 Alanine Aminotransferase (ALT/SGPT) 63 Total Bilirubin 0.6 Sodium Level 138 Potassium Level 3.8 Chloride Level 104 Carbon Dioxide Level 28.1 Anion Gap 6 Estimat Glomerular Filtration Rate 116 Date/Time Source Procedure Growth Status 12/04/17 01:05 Blood Peripheral Aerobic Blood Culture - Preliminary NO GROWTH IN 1 DAY Resulted 12/04/17 01:05 Blood Peripheral Anaerobic Blood Culture - Final QNS - SEE AEROBE REPORT Resulted 12/03/17 17:41 Nasal Aspirate Influenza Types A,B Antigen (TERRANCE) - Final NEGATIVE FOR FLU A AND B ANTIGEN.... Complete 12/03/17 18:35 Urine Catheterized Urine Urine Culture - Preliminary Escherichia Coli Lizzy Albicans Streptococcus Species Resulted 12/04/17 22:20 Abscess Head Fungal Smear - Final NO FUNGAL ELEMENTS SEEN. Resulted 12/04/17 22:20 Abscess Head Fungal Culture Pending Resulted Result Diagram: 12/05/17 0602 12/05/17 0602 Imaging Last Impressions Chest X-Ray 12/03/17 1631 Signed Impressions: Service Date/Time: Sunday, December 03, 2017 16:41 - CONCLUSION: The lungs are clear. No infiltrates seen. Crescencio Young MD Maxillofacial CT 12/03/17 0000 Signed Impressions: Service Date/Time: Sunday, December 03, 2017 22:34 - CONCLUSION: Focal soft tissue swelling and skin thickening along the right lateral orbit and frontal bone with no underlying bony abnormality or gas bubbles. There is total low density fluid and the finding is most characteristic of infection and/or abscess. Sal Hercules MD Assessment and Plan Assessment and Plan Facial cellulitis, R temporal abscess sp surgical drainage probably MRSA Fever, 102 IVDU UA, C+S cw contamination cont vancomycin dc zosyn fu blood clx untill final anticipate transition to po abx if blood clx Thelma Bergman MD Dec 05, 2017 13:36
--- NOTE | 2017-12-05 14:53 | HHI.PR ---
Subjective Remarks Patient reports pain is better. Denies fevers or chills. no fevers Objective Vitals Vital Signs Date Time Temp Pulse Resp B/P (MAP) Pulse Ox O2 Delivery O2 Flow Rate FiO2 12/05/17 12:00 98.3 100 18 132/80 (97) 100 12/05/17 08:00 97.6 91 19 132/72 (92) 98 12/05/17 04:00 96.5 92 20 122/74 (90) 99 12/05/17 00:00 97.8 97 22 129/80 (96) 99 12/04/17 20:00 100.0 104 22 125/77 (93) 99 12/04/17 16:00 99.2 98 19 111/65 (80) 100 I/O 12/04/17 12/04/17 12/04/17 12/05/17 12/05/17 12/05/17 06:59 14:59 22:59 06:59 14:59 22:59 Intake Total 50 ml 357.5 ml 1440 ml 50 ml Balance 50 ml 357.5 ml 1440 ml 50 ml Intake Oral 1440 ml IV Total 50 ml 357.5 ml 50 ml # Voids 1 6 2 # Bowel Movements 1 0 Result Diagram: 12/05/1760112/05/17 06 Objective Remarks GENERAL: female lying in bed SKIN: 3 cm round draining lesion on the right worship. Surrounding erythema without fluctuance and warmth to touch HEAD: Atraumatic. Normocephalic. No temporal or scalp tenderness. EYES: Pupils equal round and reactive. Extraocular motions intact. No scleral icterus. No injection or drainage. ENT: Nose without bleeding, purulent drainage or septal hematoma. Throat without erythema, tonsillar hypertrophy or exudate. Uvula midline. Airway patent. NECK: Trachea midline. No JVD or lymphadenopathy. Supple, nontender, no meningeal signs. CARDIOVASCULAR: Regular rate and rhythm without murmurs, gallops, or rubs. RESPIRATORY: Clear to auscultation. Breath sounds equal bilaterally. No wheezes , rales, or rhonchi. GASTROINTESTINAL: Abdomen soft, non-tender, nondistended. No hepato-splenomegaly , or palpable masses. No guarding. MUSCULOSKELETAL: Extremities without clubbing, cyanosis, or edema. No joint tenderness, effusion, or edema noted. No calf tenderness. NEUROLOGICAL: Awake and alert. Cranial nerves II through XII intact. Motor and sensory grossly within normal limits. Normal speech. Procedures sp Incision and drainage of right temporal abscess. Medications and IVs Current Medications Medications (Trade) Dose Ordered Sig/Yu Route Start Time Stop Time Status Last Admin Pharmacy Profile Note 0 ml @ 0 mls/hr UNSCH OTHER 12/04/17 20:30 Sodium Chloride 1,000 ml @ 100 mls/hr Q10H IV 12/04/17 00:16 12/05/17 03:29 (NS Flush) 2 ml UNSCH PRN IV FLUSH 12/04/17 00:30 (NS Flush) 2 ml BID IV FLUSH 12/04/17 09:00 12/05/17 19:48 (Tylenol) 650 mg Q4H PRN PO 12/04/17 00:30 12/04/17 08:47 (Zofran Inj) 4 mg Q6H PRN IVP 12/04/17 00:30 (Narcan Inj) 0.4 mg UNSCH PRN IV PUSH 12/04/17 00:30 Vancomycin HCl 1250 mg/Sodium Chloride 262.5 ml @ 250 mls/hr Q12H IV 12/04/17 15:00 12/05/17 17:50 Miscellaneous Information SPECIFIC LAB TO BE DRAWN:VANCOMY... ONCE ONCE .XX 12/06/17 02:45 12/06/17 02:46 (Percocet 5-325 Mg) 1 tab Q4H PRN PO 12/04/17 19:45 12/04/17 20:20 (Percocet 5-325 Mg) 2 tab Q4H PRN PO 12/04/17 23:30 12/05/17 21:57 (Toradol Inj) 15 mg Q6H PRN IV PUSH 12/04/17 23:30 12/09/17 23:29 12/05/17 19:53 A/P Problem List: (1) Sepsis ICD Code: A41.9 - Sepsis, unspecified organism Plan: Sepsis present on admission patient with fever, tachycardia and leukocytosis. Maxillofacial CT shows significant soft tissue swelling and skin thickening along the right lateral orbit and frontal bone with no underlying bony abnormality or gas bubbles consistent with cellulitis and abscess. Patient started IV vancomycin IV Zosyn, continue. 12/05 Blood cultures negative, Wound culture positive for MRSA. ID consulted. Continue IV Vancomycin, DC IV Zosyn. Sepsis improving with improved leukocytosis. (2) Facial abscess ICD Code: L02.01 - Cutaneous abscess of face Status: Acute Plan: We will consult OMFS. We will place on oral Percocet and IV Toradol for pain control. Antibiotics per ID. (3) Hypokalemia ICD Code: E87.6 - Hypokalemia Plan: Replaced orally. Monitor BMP. 12/05 Resolved - monitor BMP. (4) Hepatitis C ICD Code: B19.20 - Unspecified viral hepatitis C without hepatic coma Plan: ALT elevated at 63, AST normal. We will check hepatitis C viral load. (5) Hypophosphatemia ICD Code: E83.39 - Other disorders of phosphorus metabolism Plan: replace orally w neutra phos. Monitor levels. Assessment and Plan DVT prophylaxis: SCDs. Problem Qualifiers (1) Sepsis: Qualified Codes: A41.9 - Sepsis, unspecified organism (2) Hepatitis C: Kendrick Markham MD Dec 05, 2017 14:53
[2017-12-05 16:00] VITALS: BP 118/56; PULSE 94; RESP 16; TEMP 98.7; O2SAT 97
[2017-12-05] MEDS: KETOROLAC TROMETHAMINE 30 MG/ML (IVP) VIAL IV PUSH PRN (19:53)
--- NOTE | 2017-12-05 19:58 | HHI.PR ---
Subjective Remarks pt seen and examined this evening, nurse and friend at bedside POD 1 s/p I&D right temporal abscess/culture AAOx3, NAD, reports feeling better Objective Vital Signs Date Time Temp Pulse Resp B/P (MAP) Pulse Ox O2 Delivery O2 Flow Rate FiO2 12/05/17 16:00 98.7 94 16 118/56 (76) 97 12/05/17 12:00 98.3 100 18 132/80 (97) 100 12/05/17 08:00 97.6 91 19 132/72 (92) 98 12/05/17 04:00 96.5 92 20 122/74 (90) 99 12/05/17 00:00 97.8 97 22 129/80 (96) 99 12/04/17 20:00 100.0 104 22 125/77 (93) 99 I/O 12/04/17 12/04/17 12/04/17 12/05/17 12/05/17 12/05/17 07:00 15:00 23:00 07:00 15:00 23:00 Intake Total 50 ml 357.5 ml 1440 ml 50 ml 2280 ml Balance 50 ml 357.5 ml 1440 ml 50 ml 2280 ml Intake Oral 1440 ml 2280 ml IV Total 50 ml 357.5 ml 50 ml # Voids 1 6 2 7 # Bowel Movements 1 0 0 Result Diagram: 12/05/17 0602 12/05/17 0602 Objective Remarks significant decrease in right temporal edema/erythema/ulceration drain in place, no drainage noted minimal residual drainage noted on dressing no tenderness GRAM STAIN Final 12/05/17 FEW WBC'S FEW GRAM POSITIVE COCCI IN PAIRS AND CLUSTERS WOUND CULTURE Preliminary 12/05/17 HEAVY GROWTH S. AUREUS MRSA Assessment and Plan Assessment and Plan pod 1 s/p i&d right temporal abscess secondary to popping pimple GRAM STAIN Final 12/05/17 FEW WBC'S FEW GRAM POSITIVE COCCI IN PAIRS AND CLUSTERS WOUND CULTURE Preliminary 12/05/17 HEAVY GROWTH S[employer] A[employer] MRSA ID consult noted plan for drain removal tomorrow pt reports decreased hearing right ear -advised medical eval/ent consult Cameron Friend DMD Dec 05, 2017 19:58
[2017-12-05 20:00] VITALS: BP 125/72; PULSE 103; RESP 22; TEMP 98.8; O2SAT 99
[2017-12-06] VITALS: BP 113/71; PULSE 97; RESP 22; TEMP 98.9; O2SAT 97
[2017-12-06] MEDS: oxyCODONE/ACETAMINOPHEN 5 MG/325 MG TAB PO PRN ×5 (01:46→19:44)
[2017-12-06] MEDS: SODIUM CHLOR 0.9% 1000 ML INJ 1,000 ML IV SCH ×3 (02:16→19:47)
[2017-12-06] MEDS: KETOROLAC TROMETHAMINE 30 MG/ML (IVP) VIAL IV PUSH PRN ×3 (02:43→17:28)
[2017-12-06] MEDS ORDERED: PHARMACY ORDERED LAB ONE (02:45)
[2017-12-06] MEDS: VANCOMYCIN INJ 1,250 MG in SODIUM CHLOR 0.9% 250 ML INJ 250 ML IV SCH ×4 (02:50→19:44)
[2017-12-06 04:43] LABS: AUTOMATED NEUTROPHIL # 9.3 TH/MM3 (1.8-7.7); BASOPHIL # 0.1 TH/MM3 (0-0.2); BASOPHIL % 0.5 % (0.0-2.0); EOSINOPHIL # 0.2 TH/MM3 (0-0.4); EOSINOPHIL % 1.9 % (0.0-4.0); HEMATOCRIT 35.5 % (35.0-46.0); HEMOGLOBIN 12.2 GM/DL (11.6-15.3); LYMPH % 12.3 % (9.0-44.0); LYMPHOCYTE # 1.5 TH/MM3 (1.0-4.8); MEAN CELL VOLUME 85.3 FL (80.0-100.0); MEAN CORPUSCULAR HEMOGLOBIN 29.3 PG (27.0-34.0); MEAN CORPUSCULAR HGB CONC 34.3 % (32.0-36.0); MEAN PLATELET VOLUME 9.4 FL (7.0-11.0); MONO % 8.1 % (0.0-8.0); NEUT % 77.2 % (16.0-70.0); PLATELET COUNT 280 TH/MM3 (150-450); RED BLOOD COUNT 4.16 MIL/MM3 (4.00-5.30); RED CELL DISTRIBUTION WIDTH 13.7 % (11.6-17.2); WHITE BLOOD COUNT 12.1 TH/MM3 (4.0-11.0)
[2017-12-06 08:00] VITALS: BP 125/87; PULSE 98; RESP 19; TEMP 98.6; O2SAT 100
[2017-12-06] MEDS: SODIUM CHLORIDE 0.9% FLUSH 10 ML FLUSH IV FLUSH SCH ×2 (09:28→19:44)
--- NOTE | 2017-12-06 11:03 | HHI.PR ---
Subjective Remarks pt seen and examined this morning, nurse at bedside POD 2 s/p I&D right temporal abscess/culture AAOx3, NAD, reports feeling better reports right ear decreased hearing - present since admission Objective Vital Signs Date Time Temp Pulse Resp B/P (MAP) Pulse Ox O2 Delivery O2 Flow Rate FiO2 12/06/17 08:00 98.6 98 19 125/87 (100) 100 12/06/17 06:49 18 12/06/17 03:43 18 12/06/17 00:00 98.9 97 22 113/71 (85) 97 12/05/17 20:00 98.8 103 22 125/72 (89) 99 12/05/17 16:00 98.7 94 16 118/56 (76) 97 12/05/17 12:00 98.3 100 18 132/80 (97) 100 I/O 12/05/17 12/05/17 12/05/17 12/06/17 12/06/17 12/06/17 07:00 15:00 23:00 07:00 15:00 23:00 Intake Total 262.5 ml 50 ml 3542.5 ml 982.5 ml Balance 262.5 ml 50 ml 3542.5 ml 982.5 ml Intake Oral 2280 ml 720 ml IV Total 262.5 ml 50 ml 1262.5 ml 262.5 ml # Voids 2 7 4 # Bowel Movements 0 0 0 Result Diagram: 12/06/17 0341 12/05/17 0602 Objective Remarks significant decrease in right temporal edema/erythema/ulceration drain in place, no drainage noted no tenderness GRAM STAIN Final 12/05/17 FEW WBC'S FEW GRAM POSITIVE COCCI IN PAIRS AND CLUSTERS WOUND CULTURE Preliminary 12/05/17 HEAVY GROWTH S[employer] A[employer]US MRSA wbc decreasing, afebrile Assessment and Plan Assessment and Plan pod 2 s/p i&d right temporal abscess secondary to popping pimple, progressing well GRAM STAIN Final 12/05/17 FEW WBC'S FEW GRAM POSITIVE COCCI IN PAIRS AND CLUSTERS WOUND CULTURE Preliminary 12/05/17 HEAVY GR[employer] A[employer] MRSA ID consult noted Raman drain removed pt reports decreased hearing right ear -advised medical eval/ent consult, informed nurse OMS signing off, no surgical intervention needed a this time, continue medical management,recall as required Cameron Friend DMD Dec 06, 2017 11:03
[2017-12-06 12:00] VITALS: BP 121/70; PULSE 95; RESP 19; TEMP 98.7; O2SAT 97
--- NOTE | 2017-12-06 14:11 | HHI.PR ---
Subjective Remarks Patient states has difficulty hearing on right side. Patient also c/o chest pain located under right breast Objective Vitals Vital Signs Date Time Temp Pulse Resp B/P (MAP) Pulse Ox O2 Delivery O2 Flow Rate FiO2 12/06/17 12:00 98.7 95 19 121/70 (87) 97 12/06/17 08:00 98.6 98 19 125/87 (100) 100 12/06/17 06:49 18 12/06/17 03:43 18 12/06/17 00:00 98.9 97 22 113/71 (85) 97 12/05/17 20:00 98.8 103 22 125/72 (89) 99 12/05/17 16:00 98.7 94 16 118/56 (76) 97 I/O 12/05/17 12/05/17 12/05/17 12/06/17 12/06/17 12/06/17 07:00 15:00 23:00 07:00 15:00 23:00 Intake Total 262.5 ml 50 ml 3542.5 ml 982.5 ml Balance 262.5 ml 50 ml 3542.5 ml 982.5 ml Intake Oral 2280 ml 720 ml IV Total 262.5 ml 50 ml 1262.5 ml 262.5 ml # Voids 2 7 4 # Bowel Movements 0 0 0 Result Diagram: 12/06/17 0341 12/05/17 0602 Imaging Last Impressions Chest X-Ray 12/03/17 1631 Signed Impressions: Service Date/Time: Sunday, December 03, 2017 16:41 - CONCLUSION: The lungs are clear. No infiltrates seen. Crescencio Young MD Maxillofacial CT 12/03/17 0000 Signed Impressions: Service Date/Time: Sunday, December 03, 2017 22:34 - CONCLUSION: Focal soft tissue swelling and skin thickening along the right lateral orbit and frontal bone with no underlying bony abnormality or gas bubbles. There is total low density fluid and the finding is most characteristic of infection and/or abscess. Sal Hercules MD Objective Remarks GENERAL: female lying in bed SKIN: 3 cm round draining lesion on the right congregation. Surrounding erythema without fluctuance and warmth to touch HEAD: Atraumatic. Normocephalic. No temporal or scalp tenderness. EYES: Pupils equal round and reactive. Extraocular motions intact. No scleral icterus. No injection or drainage. ENT: Nose without bleeding, purulent drainage or septal hematoma. Throat without erythema, tonsillar hypertrophy or exudate. Uvula midline. Airway patent. NECK: Trachea midline. No JVD or lymphadenopathy. Supple, nontender, no meningeal signs. CARDIOVASCULAR: Regular rate and rhythm without murmurs, gallops, or rubs. RESPIRATORY: Clear to auscultation. Breath sounds equal bilaterally. No wheezes , rales, or rhonchi. GASTROINTESTINAL: Abdomen soft, non-tender, nondistended. No hepato-splenomegaly , or palpable masses. No guarding. MUSCULOSKELETAL: Extremities without clubbing, cyanosis, or edema. No joint tenderness, effusion, or edema noted. No calf tenderness. NEUROLOGICAL: Awake and alert. Cranial nerves II through XII intact. Motor and sensory grossly within normal limits. Normal speech. Procedures sp Incision and drainage of right temporal abscess. Medications and IVs Current Medications Medications (Trade) Dose Ordered Sig/Yu Route Start Time Stop Time Status Last Admin Pharmacy Profile Note 0 ml @ 0 mls/hr UNSCH OTHER 12/04/17 20:30 Sodium Chloride 1,000 ml @ 100 mls/hr Q10H IV 12/04/17 00:16 12/05/17 03:29 (NS Flush) 2 ml UNSCH PRN IV FLUSH 12/04/17 00:30 12/06/17 09:27 (NS Flush) 2 ml BID IV FLUSH 12/04/17 09:00 12/06/17 09:28 (Tylenol) 650 mg Q4H PRN PO 12/04/17 00:30 12/04/17 08:47 (Zofran Inj) 4 mg Q6H PRN IVP 12/04/17 00:30 (Narcan Inj) 0.4 mg UNSCH PRN IV PUSH 12/04/17 00:30 (Percocet 5-325 Mg) 1 tab Q4H PRN PO 12/04/17 19:45 12/04/17 20:20 (Percocet 5-325 Mg) 2 tab Q4H PRN PO 12/04/17 23:30 12/06/17 10:50 (Toradol Inj) 15 mg Q6H PRN IV PUSH 12/04/17 23:30 12/09/17 23:29 12/06/17 09:18 Vancomycin HCl 1250 mg/Sodium Chloride 262.5 ml @ 250 mls/hr Q8H IV 12/06/17 13:00 12/06/17 13:34 Miscellaneous Information SPECIFIC LAB TO BE SHELIA... ONCE ONCE .XX 12/07/17 12:45 12/07/17 12:46 A/P Problem List: (1) Sepsis ICD Code: A41.9 - Sepsis, unspecified organism Plan: Sepsis present on admission patient with fever, tachycardia and leukocytosis. Maxillofacial CT shows significant soft tissue swelling and skin thickening along the right lateral orbit and frontal bone with no underlying bony abnormality or gas bubbles consistent with cellulitis and abscess. Patient started IV vancomycin IV Zosyn, continue. 12/05 Blood cultures negative, Wound culture positive for MRSA. ID consulted. Continue IV Vancomycin, DC IV Zosyn. Sepsis improving with improved leukocytosis. 12/06 WBC continues to down trend. Continue IV antibiotics as per ID. Discussed the case with Dr. Friend from [facility] who cleared the patient to be discharged. He suggested an ENT consultation given that the patient is having trouble hearing from the right ear. I will order an MRI of the right temporal bone to rule out any infiltrating infectious process. Consult ENT. (2) Facial abscess ICD Code: L02.01 - Cutaneous abscess of face Status: Acute Plan: We will consult OMFS. We will place on oral Percocet and IV Toradol for pain control. Antibiotics per ID. (3) Hypokalemia ICD Code: E87.6 - Hypokalemia Plan: Replaced orally. Monitor BMP. 12/05 Resolved - monitor BMP. (4) Hepatitis C ICD Code: B19.20 - Unspecified viral hepatitis C without hepatic coma Plan: ALT elevated at 63, AST normal. Viral load pending. (5) Hypophosphatemia ICD Code: E83.39 - Other disorders of phosphorus metabolism Plan: replace orally w neutra phos. Monitor levels. Assessment and Plan DVT prophylaxis: SCDs. Problem Qualifiers (1) Sepsis: Qualified Codes: A41.9 - Sepsis, unspecified organism (2) Hepatitis C: Kendrick Markham MD Dec 06, 2017 14:11
[2017-12-06 16:00] VITALS: BP 125/74; PULSE 92; RESP 19; TEMP 98.7; O2SAT 95
--- NOTE | 2017-12-06 16:20 | PD.CONS ---
History of Present Illness Service ENT Consult Requested By Reason for Consult Hearing loss Primary Care Physician No Primary Care Physician Diagnoses: History of Present Illness 27 yo female with h/o IV drug use in the past. She developed a Right temporal abscess after she drained a small skin abscess. CT confirmed abscess in R temporal area and she went for I+D by Dr Friend. Culture confirmed MRSA She feels her hearing is diminished concurrently on the right. It is not out fully and her ability to discriminate words is preserved. Review of Systems Ears, nose, mouth, throat: COMPLAINS OF: Hearing loss, DENIES: Tinnitus, Vertigo Past Family Social History Allergies: Coded Allergies: No Known Allergies (Unverified , 11/07/17) Physical Exam Vital Signs Vital Signs Date Time Temp Pulse Resp B/P (MAP) Pulse Ox O2 Delivery O2 Flow Rate FiO2 12/06/17 12:00 98.7 95 19 121/70 (87) 97 12/06/17 08:00 98.6 98 19 125/87 (100) 100 12/06/17 06:49 18 12/06/17 03:43 18 12/06/17 00:00 98.9 97 22 113/71 (85) 97 12/05/17 20:00 98.8 103 22 125/72 (89) 99 Physical Exam GENERAL: This is a well-nourished, well-developed patient, in no apparent distress. SKIN: No rashes, ecchymoses or lesions. Cool and dry. HEAD: Atraumatic. Normocephalic. Healing right temporal area. EYES: Pupils equal round and reactive. Extraocular motions intact. No scleral icterus. No injection or drainage. ENT: Right ear canal clear. No erythema. Right TM dull. Nose without bleeding, purulent drainage or septal hematoma. Throat without erythema, tonsillar hypertrophy or exudate. Uvula midline. Airway patent. NECK: Trachea midline. No JVD or lymphadenopathy. Supple, nontender, no meningeal signs. Laboratory Laboratory Tests Test 12/06/17 02:45 12/06/17 03:41 12/06/17 13:19 Vancomycin Level Trough 6.1 White Blood Count 12.1 Red Blood Count 4.16 Hemoglobin 12.2 Hematocrit 35.5 Mean Corpuscular Volume 85.3 Mean Corpuscular Hemoglobin 29.3 Mean Corpuscular Hemoglobin Concent 34.3 Red Cell Distribution Width 13.7 Platelet Count 280 Mean Platelet Volume 9.4 Neutrophils (%) (Auto) 77.2 Lymphocytes (%) (Auto) 12.3 Monocytes (%) (Auto) 8.1 Eosinophils (%) (Auto) 1.9 Basophils (%) (Auto) 0.5 Neutrophils # (Auto) 9.3 Lymphocytes # (Auto) 1.5 Monocytes # (Auto) 1.0 Eosinophils # (Auto) 0.2 Basophils # (Auto) 0.1 CBC Comment DIFF FINAL Differential Comment Phosphorus Level 3.3 Beta HCG, Qualitative LESS THAN 1 Date/Time Source Procedure Growth Status 12/04/17 01:05 Blood Peripheral Aerobic Blood Culture - Preliminary NO GROWTH IN 2 DAYS Resulted 12/04/17 01:05 Blood Peripheral Anaerobic Blood Culture - Final QNS - SEE AEROBE REPORT Resulted 12/03/17 17:41 Nasal Aspirate Influenza Types A,B Antigen (TERRANCE) - Final NEGATIVE FOR FLU A AND B ANTIGEN.... Complete 12/03/17 18:35 Urine Catheterized Urine Urine Culture - Final Escherichia Coli Lizzy Albicans Streptococcus Bovis Complete 12/04/17 22:20 Abscess Head Fungal Smear - Final NO FUNGAL ELEMENTS SEEN. Resulted 12/04/17 22:20 Abscess Head Fungal Culture Pending Resulted Result Diagram: 12/06/17 0341 12/05/[address] report reviewed. Assessment and Plan Assessment and Plan Right ear hearing loss seem to be conductive along with inflammation from the infection. Treatment of the infection is appropriate and hearing should clear as edema resolves. Suggest office follow up with me at [facility] to complete an audiogram and be sure hearing is WNL. Pipo Smith MD Dec 06, 2017 16:20
[2017-12-06] MEDS ORDERED: FLUCONAZOLE 100 MG TAB PO ONE (17:45)
--- NOTE | 2017-12-06 18:43 | MP ---
cc: BROOKE FRIEND DMD DATE OF SURGERY 12/04/17 PREOPERATIVE DIAGNOSIS Right temporal head abscess POSTOPERATIVE DIAGNOSIS Right temporal head abscess PROCEDURE Incision and drainage right temporal head abscess. ANESTHESIA Local with 1% lidocaine approximately [address] Deshawn Friend TEMPORARY STAFF ACCOUNTANT Jacqueline Lira RN COMPLICATIONS None FINDINGS Pus DRAINS 1/4" Caldwell drain. INDICATIONS FOR PROCEDURE This is a 27-year-old female that recently four days ago popped a pimple on the right side of her head. She has a history of motion. It began to swell up with a lot of erythema. About 2-3 cm round, well-circumscribed and raised, very tender to palpation. It is necessary that patient undergo the above listed procedure. Benefits, risks, indications of the procedure, procedure in detail and options of no treatment were all discussed with this patient. Risks of an infection, any scar formation all discussed with this patient. Further surgeries as required. All questions and concerns addressed. Consent is signed in the chart. PROCEDURE IN DETAIL A time-out was taken to identify the patient, the site, the procedure and surgeon. All were in agreement. Betadine prep was done over the operative site. Operative site was draped in normal sterile fashion. 1% lidocaine was injected over the area that I was going to make the I&D. An 11 blade was used to make a stab incision and hemostat used to just open up the wound. Pus came out and was cultured. The site was again hemostatic. Blunt dissection, no more pus was noted. There was decrease in the swelling of the right temporal region. A 1/4" Raman drain was placed using 2-0 silk suture. Dressing was placed over the operative site. The patient tolerated the procedure well. No complication noted. Brooke Friend DMD EDUCATION REP/SA /10:16 PM /6:34 PM
[2017-12-06] MEDS: LEVOFLOXACIN 750 MG TAB PO SCH (19:27)
[2017-12-06 20:00] VITALS: BP 137/78; PULSE 102; RESP 22; TEMP 99.5; O2SAT 96
--- NOTE | 2017-12-06 22:23 | RADRPT ---
EXAM DATE/TIME: 12/06/2017 21:37 [facility] COMPARISON: CHEST PA & LAT, December 03, 2017, 16:41. INDICATIONS : Chest pain bilaterally. MEDICAL HISTORY : None. SURGICAL HISTORY : Hysterectomy. section. ENCOUNTER: Initial ACUITY: 2 days PAIN SCORE: 7/10 LOCATION: Bilateral lower chest FINDINGS: Small right pleural effusion and likely trace left pleural effusion. Associated airspace disease in t he lung bases. Cardiomediastinal contours are within normal limits. Remainder of exam is unchanged. CONCLUSION: 1. Small right and trace left pleural effusions with associated lower lobe airspace disease. Johny Breen MD on December 06, 2017 at 22:21 Board Certified Radiologist. This report was verified electronically.
[2017-12-07] VITALS: BP 121/66; PULSE 87; RESP 22; TEMP 99.6; O2SAT 94
[2017-12-07] MEDS: oxyCODONE/ACETAMINOPHEN 5 MG/325 MG TAB PO PRN ×4 (00:30→13:38)
[2017-12-07] MEDS: KETOROLAC TROMETHAMINE 30 MG/ML (IVP) VIAL IV PUSH PRN ×2 (03:24→10:52)
[2017-12-07] MEDS: VANCOMYCIN INJ 1,250 MG in SODIUM CHLOR 0.9% 250 ML INJ 250 ML IV SCH ×2 (04:44→14:01)
[2017-12-07 08:00] VITALS: BP 121/77; PULSE 88; RESP 15; TEMP 96.1; O2SAT 99
[2017-12-07] MEDS: SODIUM CHLOR 0.9% 1000 ML INJ 1,000 ML IV SCH (08:16)
[2017-12-07] MEDS ORDERED: GADODIAMIDE PF 287 MG/ML 20 ML VIAL (for RAD MRI) IVCONTRAST ONE (08:35)
[2017-12-07] MEDS ORDERED: FLUCONAZOLE 100 MG TAB PO SCH (09:00)
[2017-12-07] MEDS: SODIUM CHLORIDE 0.9% FLUSH 10 ML FLUSH IV FLUSH SCH (09:00)
--- NOTE | 2017-12-07 09:04 | RADRPT ---
EXAM DATE/TIME: 12/07/2017 08:27 [facility] COMPARISON: No previous studies available for comparison. INDICATIONS : Temporal infection, hearing loss, right ear. CONTRAST: 12 cc Omniscan (gadodiamide) IV MEDICAL HISTORY : Hepatitis C. SURGICAL HISTORY : Hysterectomy. section. ENCOUNTER: Initial ACUITY: 1 day PAIN SCORE: 0/10 LOCATION: cranial TECHNIQUE: Multiplanar, multisequence MRI of the brain was performed both prior to and following the administrat ion of paramagnetic contrast. FINDINGS: CEREBRUM: The ventricles are normal for age. No evidence of midline shift, mass lesion, hemorrhage or acute in farction. No extraaxial fluid collections are seen. The pituitary gland and suprasellar cistern are normal in configuration. There is a 0.8 cm left choroidal fissure cyst. WHITE MATTER: No significant signal abnormalities are seen in the white matter. POSTERIOR FOSSA: The cerebellum and brainstem are intact. The 4th ventricle is midline. The cerebellopontine angle is unremarkable. The cerebellar tonsils are normal in position. DIFFUSION IMAGING: No focal areas of restricted diffusion are seen. No evidence of acute infarction. EXTRACRANIAL: The visualized portions of the orbits and paranasal sinuses are unremarkable. There is increased sign al within the right mastoid air cells. There is a focal skin lesion in the right temporal scalp regio n. It does demonstrate some surrounding enhancement. There is a central 0.7 cm fluid component. POST-CONTRAST: No abnormal areas of parenchymal or dural enhancement. No evidence of blood-brain barrier breakdown. There is enhancement seen at the right parietal scalp lesion. CONCLUSION: 1. No intracranial abnormality. 2. Focal skin lesion at the right temporal scalp with a small 0.7 cm central cystic component and pavan rounding enhancement and swelling. This appears to relate to the skin. The enhancement is limited to the skin and subcutaneous fat. Prabhakar Pereyra MD on December 07, 2017 at 8:56 Board Certified Radiologist. This report was verified electronically.
[2017-12-07] MEDS: LEVOFLOXACIN 750 MG TAB PO SCH (09:17)
[2017-12-07 12:00] VITALS: BP 134/79; PULSE 92; RESP 16; TEMP 98.4; O2SAT 98
--- NOTE | 2017-12-07 12:15 | HHI.PR ---
Addendum to Inpatient Note Additional Information dw Dr Duke pt can be switched to po abx: doxycyline 100 bid (other option clindamycin 300 qid) complete 10 more days of oral abx Thelma Ruiz MD Dec 07, 2017 12:15
[2017-12-07 12:37] LABS: CREATININE 0.53 MG/DL (0.50-1.00)
[2017-12-07] MEDS ORDERED: PHARMACY ORDERED LAB ONE (12:45)
[2017-12-07] MEDS ORDERED: DOXY100C PO (15:32)
[2017-12-07] MEDS ORDERED: KETO10 PO (15:32)
--- NOTE | 2017-12-07 15:33 | HHI.DCPOC ---
Discharge Care Plan Diagnosis: (1) Sepsis (2) Facial abscess (3) Hypokalemia (4) Hepatitis C (5) Hypophosphatemia Goals to Promote Your Health * To prevent worsening of your condition and complications * To maintain your health at the optimal level Directions to Meet Your Goals Take your medications as prescribed Follow your dietary instruction Follow activity as directed Keep your appointments as scheduled Take your immunizations and boosters as scheduled If your symptoms worsen call your PCP, if no PCP go to Urgent Care Center or Emergency Room Smoking is Dangerous to Your Health. Avoid second hand smoke Call the 24-hour hour crisis hotline for domestic abuse at Kendrick Markham MD Dec 07, 2017 15:33
[2017-12-07] MEDS ORDERED: VANCOMYCIN 1,500 MG/NS 500 ML IV SCH ×2 (21:00)
[2017-12-08] MEDS ORDERED: PHARMACY ORDERED LAB ONE (13:45)
== END 2017-12-07 18:44 | disposition home or self-care (01) | DRG 872 ==
LOC: NEPE 16:18 → NEDA 23:01 → N07B 12-04 00:25
PROVIDERS: ADMIT Hospitalist; ATTEND Hospitalist
PROC: 0H91X0Z Drainage of Face Skin with Drainage Device, External Approach (ICD-10-PCS; principal; 2017-12-04)
DX: A41.9 Sepsis, unspecified organism (principal); E83.39 Other disorders of phosphorus metabolism; L02.01 Cutaneous abscess of face; L03.211 Cellulitis of face; E87.6 Hypokalemia; H91.91 Unspecified hearing loss, right ear; R07.9 Chest pain, unspecified; B19.20 Unspecified viral hepatitis C without hepatic coma; B95.62 Methicillin resistant Staphylococcus aureus infection as the cause of diseases classified elsewhere; F11.10 Opioid abuse, uncomplicated; Z86.14 Personal history of Methicillin resistant Staphylococcus aureus infection
CPT/HCPCS: 70487; 70553; 71046; 80053; 80202; 81001; 82550; 82565; 83605; 83735; 84100; 84484; 84703; 85025; 85379; 85610; 85730; 86403; 87015; 87040; 87070; 87077; 87086; 87102; 87116; 87147; 87186; 87205; 87206; 87522; 87804; 93005; 96365; 96366; 96375; A9579; J1885; J2543; J3370; J7030; J7050; Q9967